=== PATIENT | male | born 1950 | race Caucasian/White ===

== ENCOUNTER 2023-09-19 13:46 | Outpatient (CLI) | payer MEDICARE, SELFPAY ==
[2023-09-19 14:25] LABS: Alveolar/Arterial O2 Gradient 29.6 mmHg; Base Excess ABG 3.3 mEq/l (+/-2.0); Fractional Inspired Oxygen 21 %; HCO3 ABG 28.8 mEq/l (22.0-26.0); Oxygen Content ABG 20.4 %vol (16.0-22.0); Oxygen Saturation ABG 92.6 % (95.0-100.0); PCO2 ABG 46.5 mmHg (35.0-45.0); PO2 ABG 64.4 mmHg (80.0-100.0); PO2 FiO2 Ratio Arterial Blood 3.07 %; Total Hemoglobin 16.6 g/dL (12.0-18.0)
[2023-09-19 14:31] LABS: Modified Allen's Test Pass; Oxyhemoglobin 87.7 % THb (90.0-100.0)
[2023-09-19 14:32] LABS: Device ROOM AIR
--- NOTE | 2023-09-22 09:37 | WPDPFTINT ---
PFT Procedure Performed PFT Procedure Performed Spirometry with Pre/Post Bronchodilator Plethysmography (Lung Vol) Diffusing Cap (DLCO) Flow Vol Loop PFT Interpretation This is a pulmonary function test with pre and post-bronchodilator spirometry, plethysmography and diffusing capacity. The test was performed and results interpreted in accordance with the 2019 and 2005 ATS/ERS Task Force guidelines respectively using the Global Lung Function Initiative-2012 reference equations. Patient demonstrated good effort and cooperation. Reproducibility criteria were met. The quality of the pre bronchodilator spirometry maneuver was Grade A and post bronchodilator spirometry maneuver was Grade A. Findings: Spirometry: There is decreased maximal expiratory airflow at all lung volumes with concave expiratory flow tracing. The contour the inspiratory flow tracing is normal. The pre bronchodilator FVC is 3.73 L, 92% predicted. The pre bronchodilator FEV1 is 1.17 L, 38% predicted. The pre bronchodilator FEV1: FVC ratio is 31%. The post bronchodilator FVC is 3.86 L, representing a 4% increase. The post bronchodilator FEV1 is 1.24 L, representing a 6% increase. The post bronchodilator FEV1: FVC ratio is 32%. Plethysmography: The total lung capacity is 7.06 L, 104% predicted. The functional residual capacity is 5.10 L, 141% predicted. The residual volume is 3.34 L, 139% predicted. The residual volume: Total lung capacity ratio is 47%. Diffusing capacity: The diffusing capacity unadjusted for hemoglobin and carboxyhemoglobin is 8.4, 33% predicted. The diffusing capacity adjusted for alveolar volume is 1.68, 43% predicted. Impression: There is a severe obstructive abnormality. There is no significant improvement after inhaling a single dose of albuterol. The increase in residual volume to total lung volume ratio is consistent with hyperinflation from an obstructive abnormality. The diffusing capacity unadjusted for hemoglobin and carboxyhemoglobin is severely decreased and remains moderately decreased when adjusted for alveolar volume. There are no prior studies for comparison
--- NOTE | 2023-09-24 12:54 | WPDSIXMINUTE ---
Six Minute Walk Procedure Procedure Performed Pulmonary Stress Test (6 min walk) Six Minute Walk Six Minute Walk: This 6 minute walk test was conducted with the patient breathing ambient air. The pre-walk baseline oxyhemoglobin saturation was 94%. The patient walked 365 m with no stops during testing. During the walk the oxyhemoglobin saturation remained in the range of 93%-95%. Impression: No evidence of oxyhemoglobin desaturation on this testing.
== END 2023-09-19 13:47 | disposition home or self-care (01) ==
LOC: ANHPFT 13:53
PROVIDERS: PCP Internal Medicine; Visit Provider Internal Medicine Critical Care Medicine
DX: J43.9 Emphysema, unspecified (principal)
CPT/HCPCS: 36600; 82805; 94060; 94618; 94726; 94729

== ENCOUNTER 2024-06-10 01:08 | Day surgery (SDC) | payer MEDICARE, SELFPAY ==
[2024-05-31 14:48] VITALS: BMI 18.6
--- NOTE | 2024-06-09 15:36 | P.PNAN_ITS ---
Anes - Initial Pre Proc Eval Procedure: Operation Date: 06/10/24 10:00 Proposed Procedures p Screening Colonoscopy - Sohail Saldana MD Date/Time: 06/09/24 15:36 Surgeon: Sohail Saldana MD Pre Op Diagnosis: personal hx colon polyps Patient Data Age: 73 Gender: M Height: 1.73 m Weight: 55.4 kg Allergies Allergy/AdvReac Type Severity Reaction Status Date / Time No Known Allergies Allergy Verified 06/10/24 08:52 Home Medications ?Medication ?Instructions ?Recorded ?Confirmed ?Type Trelegy Ellipta 100 mcg-62.5 See Rx Instructions .Route 05/20/24 06/10/24 Rx mcg-25 mcg powder for inhalation .COMPLEX #60 ea ([id number]) Patient hx anesthesia problems: none Family hx anesthesia problems: none Results Review: All pre-operative results and documents have been reviewed as part of the pre- operative evaluation. [facility] Past Medical History Medical History Abnormal weight loss Benign prostatic hyperplasia Hypercholesterolemia Polyp of colon Pulmonary emphysema 04/23/2022 Family History Family History Mother Hypertension Diabetes mellitus Father COPD (chronic obstructive pulmonary disease) Sibling Cerebrovascular accident Parkinson disease Social History Social History Smoking packs per day: 1 Smoking cigarettes per day: 20.0 Years smoked: 60 Smoking pack-years: 60.00 Smoking status: Current every day smoker Tobacco type: cigarettes Second hand tobacco smoke exposure: Yes Alcohol intake: current Substance use: unknown Anes - Eval Final PreProcedure Day of Procedure 06/09/24 15:36 Patient weight: normal Heart: regular rate and rhythm Lungs: clear to auscultation and normal air movement Airway: Mallampati scale class II Neurological: alert and oriented Last oral intake: >/= 8 hours ASA classification: III Emergent: no Anesthetic plan: proceed Anesthesia type and monitoring: general GIVS and standard monitoring Results Review: All pre-operative results and documents have been reviewed as part of the pre- operative evaluation. Informed Consent: The patient's anesthetic plan and its attendant risks and benefits were discussed with the patient/family/POA. Questions were solicited and answers provided to the satisfaction of the patient/family/POA.
[2024-06-10 08:53] VITALS: BP 154/89; PULSE 96; RESP 22; TEMP 36.4; O2SAT 94; BMI 18.6
[2024-06-10] MEDS: LACTATED RINGERS 1,000 ML 150 ML IV CONT (08:57)
--- NOTE | 2024-06-10 09:04 | PM.HPGS ---
History of Present Illness History of Present Illness Consent: Risks, benefits, and alternatives have been discussed and questions answered. Patient agrees to proceed with procedure. Chief complaint: personal hx colon polyps Narrative: Golden Barksdale is a 73 year old male with colon polyp, last colonoscopy 5 years ago Review of Systems Review of Systems: All systems reviewed & are unremarkable except as noted in HPI and below PMFSH Past Medical History Medical History (Updated 06/10/24 @ 09:07 by Sohail Saldana MD) Adenomatous colon polyp Benign prostatic hyperplasia Abnormal weight loss Pulmonary emphysema 04/23/2022 Hypercholesterolemia Polyp of colon Family History Family History Mother Hypertension Diabetes mellitus Father COPD (chronic obstructive pulmonary disease) Sibling Cerebrovascular accident Parkinson disease Social History Social History Smoking packs per day: 1 Smoking cigarettes per day: 20.0 Years smoked: 60 Smoking pack-years: 60.00 Smoking status: Current every day smoker Tobacco type: cigarettes Second hand tobacco smoke exposure: Yes Alcohol intake: current Substance use: unknown Meds Home Medications and Allergies Home Medications ?Medication ?Instructions ?Recorded ?Confirmed ?Type Trelegy Ellipta 100 mcg-62.5 See Rx Instructions .Route 05/20/24 06/10/24 Rx mcg-25 mcg powder for inhalation .COMPLEX #60 ea ([id number]) Allergies Allergy/AdvReac Type Severity Reaction Status Date / Time No Known Allergies Allergy Verified 06/10/24 08:52 Vital Signs Vital Signs - 24 hr 06/10/24 08:53 Temperature 97.6 F Pulse Rate 96 Respiratory Rate 22 H Blood Pressure 154/89 H Pulse Oximetry 94 Oxygen Delivery Room Air Exam Const: General: comfortable and no acute distress HENMT: Face/Nose/Sinus: Normal nares present Eyes: General: appearance normal, both eyes and all related structures Neck: Neck: no JVD Resp: Auscultation: clear to auscultation bilaterally Cardio: Rate: regular rate Rhythm: regular rhythm GI: Inspection: non-distended GI Palp: Yes Soft to palpation Skin: General skin exam: normal color Neuro: Speech: normal speech Extrem: General: normal to inspection Psych: Mental Status: mental status grossly normal Assessment and Plan Assessment and plan (1) Adenomatous colon polyp: Code(s): D12.6 - Benign neoplasm of colon, unspecified Status: Acute Assessment and Plan: colonoscopy
[2024-06-10 09:23] VITALS: BP 96/58; PULSE 81; RESP 25; O2SAT 94
[2024-06-10 09:33] VITALS: BP 108/77; PULSE 77; RESP 23; O2SAT 98
[2024-06-10 09:43] VITALS: BP 125/73; PULSE 70; RESP 24; O2SAT 98
--- OUTSIDE RECORDS SUMMARY | 2024-06-11 03:45 | XMS_ITS | Data Portability ---
Author Organization [facility], Main Office Address [address] [place] [address] Assessment No assessment recorded. Plan of Treatment Reminders Order Date Submit Date Provider Last Modified By Organization Details Last Modified Time Details Appointments None recorded . Lab CBC w/ auto diff 023 11/13/19 23 [employer] [facility], [place], [address], 3 15:14:33 CMP, serum or plasma 023 11/13/19 23 [employer] [facility], [place], [address], 3 15:14:32 T4, free, serum 023 11/13/[address] [facility], [place], [address], 3 15:14:34 TSH, serum or plasma 023 11/13/[address] [facility], [place], [address], 3 15:14:35 PSA, serum or plasma 023 11/13/19 23 [employer] [facility], [place], [address], 3 15:14:35 lipid panel, serum 024 01/01/20 24 [employer] [facility], [place], [address], 4 07:44:47 CMP, serum or plasma 024 01/01/20 24 [employer] [facility], [address], [place], [address], 4 07:44:47 CBC w/ auto diff 024 01/01/20 24 [employer] [facility], [address], [place], [address], 4 07:44:48 PSA, serum or plasma 024 01/01/20 24 [employer] [facility], [address], [place], [address], 4 07:44:48 Referral None recorded . Procedures None recorded . Surgeries None recorded . Imaging None recorded . Medication Orders None recorded . Patient TargetsNo targets recorded. Patient Instructions Encounter Date Encounter Id Patient Instructions Last Modified By Organization Details Last Modified Time 11/12/2022 [id number] Follow-up pulmon bonny emphysema -prostatic hypertrophy -colon polyps by history. Clinically doing well. Has noticed some decrease in exercise tolerance over the last year. Refuses try to take any type of bronchodilators or have other diagnostic test performed outside the low-dose CT scan he had done back in May. That did not demonstrate any evidence any high risk of malignancy. States he can walk up one flight of steps without becoming extremely dyspneic. Really needs to have further pulmonary function test performed possibly see pulmonology refusing at this time. Will check blood work consisting of CBC, CMP, lipid and PSA. Follow-up in six months [email or web address] Not available 11/12/2022 12:22:34 07/04/2023 [id number] dementia rating scale-2* [email or web address] Not available 07/04/2023 11:29:21 alcohol misuse* [email or web address] Not available 07/04/2023 11:29:21 depression screening* [email or web address] Not available 07/04/2023 11:29:21 multi-dimensiona l health assessment questionnaire* [email or web address] Not available 07/04/2023 11:29:21 Personalized a lth Plan and Screening Recommendations Advance Directives - Do you have one? Advance Directives - Do we have your advance directive on file in your health record? Primary Prevention/Interven tion (prevents or decreases the chance of common diseases from occurring) Smoking Risk: Refer to attached smoking cessation handouts Refer to attached handouts and prescription will be sent to pharmacy Continue to consider stopping smoking and call if we can assist you Alcohol Misuse Screening: Negative Weight: Physical activity: Nutrition: Good Average Fall Risk (screened today): Low Vaccines Pneumococcal: Influenza: Ordered Recommended today Recommended today, but you have declined Chronic Disease Risks Stroke: Low Risk I have no recommendations Heart Attack: Low risk I have no recommendations Clogging of the Arteries: Low risk Intermediate Risk I have no recommendations Act juan pablo diagnosis, Continue current treatment plan Diabetes: Low Risk I have no recommendations Secondary Prevention/Interven tion (detects treatable diseases before they may cause symptoms, disability, or ) Prostate Cancer Screening: Colon Cancer Screening: Colonoscopy Date Screening Last Performed: _2018 Eye Disease Screening: Dementia Risk: Low I have no recommendations Depression Screening: Negative [email or web address] Not available 07/04/2023 11:02:25 [facility] stable. Follow-up for hyperlipidemia -pulmonary emphysema as well as colon polyps. No blood work needed at this time. Will continue on current Rx. Will set up for a pulmonary evaluation. The low-dose CT scan of the chest done today which we have the results already. Does show some changes and small nodules in the lung. They recommended six month follow-up. Did have a trial of some Breztri with no improvement. Will continue on current Rx otherwise. Portions of the record may have been created with voice recognition software. Occasional wrong-word or ? [id number]? substitutions may have occurred due to the inherent limitations of voice recognition software. Read the chart carefully and recognize, using context, where substitutions have occurred. Set up for pulmonary evaluation because of severe emphysema. Keep Appt: Fri 10:30 AM Michelle [email or web address] Not available 07/04/2023 11:29:04 01/01/2024 [id number] Personalized Hea lth Plan and Screening Recommendations Advance Directives - Do you have one? Advance Directives - Do we have your advance directive on file in your health record? Primary Prevention/Interven tion (prevents or decreases the chance of common diseases from occurring) Smoking Risk: Alcohol Misuse Screening: Weight: Physical activity: Nutrition: Fall Risk (screened today): Vaccines Pneumococcal: Influenza: Chronic Disease Risks Stroke: I have no recommendations Active diagnosis, Continue current treatment plan Heart Attack: I have no recommendations Act juan pablo diagnosis, Continue current treatment plan Clogging of the Arteries: I have no recommendations Act juan pablo diagnosis, Continue current treatment plan Diabetes: Secondary Prevention/Interven tion (detects treatable diseases before they may cause symptoms, disability, or ) Prostate Cancer Screening: Colon Cancer Screening: Date Screening Last Performed: Eye Disease Screening: Dementia Risk: Depression Screening: [email or web address] Not available 01/01/2024 11:20:52 Follow-up for CO PD, hyperlipidemia, benign prostatic hypertrophy and multiple pulmonary nodules. Check blood work consisting of CBC, CMP, lipid PSA. I will also do a low-dose CT scan the chest for follow-up as well as set up for a colonoscopy. Additional Orders - Directives - Recommendations 1. Six-month follow-up low-dose CT scan of the chest for pulmonary nodules at radiology request 2. Colonoscopy follow-up for polyps Next Appointment: 6 Months Approximate Date: 06/29/2024 Portions of the record may have been created with voice recognition software. Occasional wrong-word or ? [id number]? substitutions may have occurred due to the inherent limitations of voice recognition software. Read the chart carefully and recognize, using context, where substitutions have occurred. [email or web address] Not available 01/01/2024 12:06:42 Reason for Referral None Reported. Results Created Date Observation Date Name Description Value Unit Range Abnormal Flag Note LastModifiedBy Organization Detail LastModifiedTime 11/16/19 22 11/16/2021 PSA, TOTAL PSA, total 0.46 NG/mL < or = 4.00 normal The total PSA value from this assay syste m is stand ardiz ed again st the WHO stand lisset. The test resul t will be appro ximat jared 20% lower when jacklyn red to the equim olar- stand ardiz ed total PSA ([place] [facility]). Jacklyn rison of seria l PSA resul ts shoul d be inter prete d with this fact in mind. This test was perfo rmed using the Sieme ns chemi lumin escen t metho d. Value s obtai vadim from diffe rent assay metho ds canno t be used inter sampson eably . PSA level s, regar dless of value , shoul d not be inter prete d as absol shawnee evide nce of the prese nce or absen ce of disea se. Not Available [address], [address], 11/16/2021 04:04:36 11/16/19 22 11/16/2021 VITAM IN B12 vitamin B12 497 pg/mL 200-11 00 normal Not Available [address], [address], 11/16/2021 04:04:35 11/16/19 22 11/16/2021 CBC (INCL UDES DIFF/ PLT) white blood cell count 6.0 thous and/u L 3.8-10 .8 normal Not Available [address], [address], 11/16/2021 04:04:35 11/16/19 22 11/16/2021 CBC (INCL UDES DIFF/ PLT) red blood cell count 4.94 trisha on/uL 4.20-5 .80 normal Not Available [address], [address], 11/16/2021 04:04:35 11/16/19 22 11/16/2021 CBC (INCL UDES DIFF/ PLT) hemoglobin 17.0 g/dL 13.2-1 7.1 normal Not Available [address], [address], 11/16/2021 04:04:35 11/16/19 22 11/16/2021 CBC (INCL UDES DIFF/ PLT) hematocrit 49.2 % 38.5-5 0.0 normal Not Available [facility] [address], [address], 11/16/2021 04:04:35 11/16/19 22 11/16/2021 CBC (INCL UDES DIFF/ PLT) MCV 99.6 fL 80.0-1 00.0 normal Not Available [address], [address], 11/16/2021 04:04:35 11/16/19 22 11/16/2021 CBC (INCL UDES DIFF/ PLT) MCH 34.4 pg 27.0-3 3.0 high Not Available [facility] [address], [address], 11/16/2021 04:04:35 11/16/19 22 11/16/2021 CBC (INCL UDES DIFF/ PLT) MCHC 34.6 g/dL 32.0-3 6.0 normal Not Available [address], [address], 11/16/2021 04:04:35 11/16/19 22 11/16/2021 CBC (INCL UDES DIFF/ PLT) RDW 12.5 % 11.0-1 5.0 normal Not Available [address], [address], 11/16/2021 04:04:35 11/16/19 22 11/16/2021 CBC (INCL UDES DIFF/ PLT) platelet count 234 thous and/u L 140-40 0 normal Not Available [address], [address], 11/16/2021 04:04:35 11/16/19 22 11/16/2021 CBC (INCL UDES DIFF/ PLT) MPV 10.5 fL 7.5-12 .5 normal Not Available [address], [address], 11/16/2021 04:04:35 11/16/19 22 11/16/2021 CBC (INCL UDES DIFF/ PLT) absolute neutrophils 3606 cells /uL 1500-7 800 normal Not Available [address], [address], 11/16/2021 04:04:35 11/16/19 22 11/16/2021 CBC (INCL UDES DIFF/ PLT) absolute lymphocytes 1602 cells /uL 850-39 00 normal Not Available [address], [address], 11/16/2021 04:04:35 11/16/19 22 11/16/2021 CBC (INCL UDES DIFF/ PLT) absolute monocytes 672 cells /uL 200-95 0 normal Not Available [address], [address], 11/16/2021 04:04:35 11/16/19 22 11/16/2021 CBC (INCL UDES DIFF/ PLT) eosinophils 1.3 % normal Not Available [address], [address], 11/16/2021 04:04:35 11/16/19 22 11/16/2021 CBC (INCL UDES DIFF/ PLT) absolute eosinophils 78 cells /uL 15-500 normal Not Available [address], [address], 11/16/2021 04:04:35 11/16/19 22 11/16/2021 CBC (INCL UDES DIFF/ PLT) absolute basophils 42 cells /uL 0-200 normal Not Available [facility] [address], [address], 11/16/2021 04:04:35 11/16/19 22 11/16/2021 CBC (INCL UDES DIFF/ PLT) neutrophils 60.1 % normal Not Available [address], [address], 11/16/2021 04:04:35 11/16/19 22 11/16/2021 CBC (INCL UDES DIFF/ PLT) lymphocytes 26.7 % normal Not Available [address], [address], 11/16/2021 04:04:35 11/16/19 22 11/16/2021 CBC (INCL UDES DIFF/ PLT) monocytes 11.2 % normal Not Available [facility] [address], [address], 11/16/2021 04:04:35 11/16/19 22 11/16/2021 CBC (INCL UDES DIFF/ PLT) basophils 0.7 % normal Not Available [address], [address], 11/16/2021 04:04:35 11/16/19 22 11/16/2021 SED RATE BY MODIF IED WESTE RGREN sed rate by modified westkeyonnaren 2 mm/h < or = 20 normal Not Available [address], [address], 11/16/2021 04:04:34 11/16/19 22 11/16/2021 COMPR EHENS JUAN PABLO METAB OLIC PANEL , PLASM A glucose 89 mg/dL 65-99 normal Fasti ng refer ence inter quintin Not Available [address], [address], 11/16/2021 04:04:34 11/16/19 22 11/16/2021 COMPR EHENS JUAN PABLO METAB OLIC PANEL , PLASM A urea nitrogen (BUN) 6 mg/dL 7-25 low Not Available [address], [address], 11/16/2021 04:04:34 11/16/19 22 11/16/2021 COMPR EHENS JUAN PABLO METAB OLIC PANEL , PLASM A creatinine 0.71 mg/dL 0.70-1 .25 normal For patie nts >49 years of age, the refer ence limit for Creat inine is appro ximat jared 13% highe r for peopl e ident ified as Afric an-Am nancy n. Not Available [address], [address], 11/16/2021 04:04:34 11/16/19 22 11/16/2021 COMPR EHENS JUAN PABLO METAB OLIC PANEL , PLASM A eGFR non-afr. somali 96 mL/mi n/1.7 3m2 > or = 60 normal Not Available [facility] [address], [address], 11/16/2021 04:04:34 11/16/19 22 11/16/2021 COMPR EHENS JUAN PABLO METAB OLIC PANEL , PLASM A eGFR 111 mL/mi n/1.7 3m2 > or = 60 normal Not Available [address], [address], 11/16/2021 04:04:34 11/16/19 22 11/16/2021 COMPR EHENS JUAN PABLO METAB OLIC PANEL , PLASM A BUN/creatini ne ratio 8 (calc ) 6-22 normal Not Available [address], [address], 11/16/2021 04:04:34 11/16/19 22 11/16/2021 COMPR EHENS JUAN PABLO METAB OLIC PANEL , PLASM A sodium 139 mmol/ L 135-14 6 normal Not Available [address], [address], 11/16/2021 04:04:34 11/16/19 22 11/16/2021 COMPR EHENS JUAN PABLO METAB OLIC PANEL , PLASM A potassium 4.6 mmol/ L 3.4-4. 8 normal Not Available [facility] [address], [address], 11/16/2021 04:04:34 11/16/19 22 11/16/2021 COMPR EHENS JUAN PABLO METAB OLIC PANEL , PLASM A chloride 98 mmol/ L 98-110 normal Not Available [address], [address], 11/16/2021 04:04:34 11/16/19 22 11/16/2021 COMPR EHENS JUAN PABLO METAB OLIC PANEL , PLASM A carbon dioxide 30 mmol/ L 20-32 normal Not Available [address], [address], 11/16/2021 04:04:34 11/16/19 22 11/16/2021 COMPR EHENS JUAN PABLO METAB OLIC PANEL , PLASM A calcium 9.6 mg/dL 8.6-10 .3 normal Not Available [address], [address], 11/16/2021 04:04:34 11/16/19 22 11/16/2021 COMPR EHENS JUAN PABLO METAB OLIC PANEL , PLASM A protein, total 7.0 g/dL 6.4-8. 4 normal Not Available [address], [address], 11/16/2021 04:04:34 11/16/19 22 11/16/2021 COMPR EHENS JUAN PABLO METAB OLIC PANEL , PLASM A albumin 4.4 g/dL 3.6-5. 1 normal Not Available [address], [address], 11/16/2021 04:04:34 11/16/19 22 11/16/2021 COMPR EHENS JUAN PABLO METAB OLIC PANEL , PLASM A globulin 2.6 g/dL_ (calc ) 2.2-4. 0 normal Not Available [address], [address], 11/16/2021 04:04:34 11/16/19 22 11/16/2021 COMPR EHENS JUAN PABLO METAB OLIC PANEL , PLASM A albumin/glob ulin ratio 1.7 (calc ) 0.9-2. 3 normal Not Available [address], [address], 11/16/2021 04:04:34 11/16/19 22 11/16/2021 COMPR EHENS JUAN PABLO METAB OLIC PANEL , PLASM A bilirubin, total 0.5 mg/dL 0.2-1. 2 normal Not Available [address], [address], 11/16/2021 04:04:34 11/16/19 22 11/16/2021 COMPR EHENS JUAN PABLO METAB OLIC PANEL , PLASM A alkaline phosphatase 97 U/L 35-144 normal Not Available [address], [address], 11/16/2021 04:04:34 11/16/19 22 11/16/2021 COMPR EHENS JUAN PABLO METAB OLIC PANEL , PLASM A AST 78 U/L 10-35 high Not Available [address], [address], 11/16/2021 04:04:34 11/16/19 22 11/16/2021 COMPR EHENS JUAN PABLO METAB OLIC PANEL , PLASM A ALT 76 U/L 9-46 high Not Available [address], [address], 11/16/2021 04:04:34 11/16/19 22 11/16/2021 TSH+F REE T4 TSH 1.60 mIU/L 0.40-4 .50 normal Not Available [address], [address], 11/16/2021 04:04:33 11/16/19 22 11/16/2021 TSH+F REE T4 T4, free 1.1 NG/dL 0.8-1. 8 normal Not Available [address], [address], 11/16/2021 04:04:33 11/16/19 22 11/16/2021 LIPID PANEL , STAND LISSET LDL-choleste rol 59 mg/dL _(ashley c) normal Refer ence range : <100 Katrina able range <100 mg/dL for prima ry preve ntion ; <70 mg/dL for patie nts with CHD or diabe tic patie nts with > or = 2 CHD risk facto rs. LDL-C is now calcu lated using the Audra n-Hop kins calcu latio n, which is a valid ated novel metho d provi ding luis antonio r accur acy than the Fried yordy equat ion in the estim ation of LDL-C . Audra reynolds SS et al. JUN. 2013; 310(1 9): 2061- 2068 (http ://ed ucati on.ebooxter.com. com/f aq/FA Q164) Not Available [address], [address], 11/16/2021 04:04:32 11/16/19 22 11/16/2021 LIPID PANEL , STAND LISSET cholesterol, total 165 mg/dL <200 normal Not Available [address], [address], 11/16/2021 04:04:32 11/16/19 22 11/16/2021 LIPID PANEL , STAND LISSET HDL cholesterol 88 mg/dL > or = 40 normal Not Available [address], [address], 11/16/2021 04:04:32 11/16/19 22 11/16/2021 LIPID PANEL , STAND LISSET triglyceride s 93 mg/dL <150 normal Not Available [address], [address], 11/16/2021 04:04:32 11/16/19 22 11/16/2021 LIPID PANEL , STAND LISSET chol/HDLC ratio 1.9 (calc ) <5.0 normal Not Available [facility] [address] [address], [place], [address], 11/16/2021 04:04:32 11/16/19 22 11/16/2021 LIPID PANEL , STAND LISSET non HDL cholesterol 77 mg/dL _(ashley c) <130 normal For patie nts with diabe marguerite plus 1 major ASCVD risk facto r, treat ing to a non-H DL-C goal of <100 mg/dL (LDL- C of <70 mg/dL ) is consi dered a thera peuti c optio n. Not Available [facility] [address] [address] [address], [place], [address], 11/16/2021 04:04:32 11/29/19 22 11/29/2021 HEPAT ITIS PANEL , ACUTE W/REF OLGA TO CONFI RMATI ON index 0.01 <1.00 normal HCV antib marcin was non-r eacti ve. There is no labor atory evide nce of HCV infec tion. In most cases , no furth er actio n is requi red. Howev er, if recen t HCV expos ure is suspe cted, a test for HCV RNA (test code 19325 ) is sugge sted. For addit ional infor matio n pleas e refer to http: //Bright!Tax charlotte n.que stdia gnost ics.c om/fa q/FAQ 22v1 (This link is being provi ded for infor chaim nal/ educa franny l purpo ses only. ) Not Available [facility] [address], [place], [address], 11/29/2021 10:53:24 11/29/19 22 11/29/2021 HEPAT ITIS PANEL , ACUTE W/REF OLGA TO CONFI RMATI ON hepatitis A IgM non-re active non-re active normal For addit ional infor matio n, pleas e refer to http: //Bright!Tax catkimmy n.que stdia gnost ics.c om/fa q/FAQ 202 (This link is being provi ded for infor matio nal/ rahul jacksono ses only. ) Not Available [address] [address] [place], [address], 11/29/2021 10:53:24 11/29/19 22 11/29/2021 HEPAT ITIS PANEL , ACUTE W/REF OLGA TO CONFI RMATI ON hepatitis B surface antigen non-re active non-re active normal Not Available [address] [address] [place], [address], 11/29/2021 10:53:24 11/29/19 22 11/29/2021 HEPAT ITIS PANEL , ACUTE W/REF OLGA TO CONFI RMATI ON hepatitis B core antibody (IgM) non-re active non-re active normal Not Available [address] [address] [place], [address], 11/29/2021 10:53:24 11/29/19 22 11/29/2021 HEPAT ITIS PANEL , ACUTE W/REF OLGA TO CONFI RMATI ON hepatitis C antibody non-re active non-re active normal Not Available [address] [address] [place], [address], 11/29/2021 10:53:24 11/16/19 23 11/16/2022 LIPID PANEL , STAND LISSET cholesterol, total 135 mg/dL <200 normal Not Available [address] [address] [place], [address], 11/16/2022 15:14:31 11/16/19 23 11/16/2022 LIPID PANEL , STAND LISSET HDL cholesterol 65 mg/dL > or = 40 normal Not Available [address], [address], 11/16/2022 15:14:31 11/16/19 23 11/16/2022 LIPID PANEL , STAND LISSET triglyceride s 65 mg/dL <150 normal Not Available [address] [place], [address], 11/16/2022 15:14:31 11/16/19 23 11/16/2022 LIPID PANEL , STAND LISSET LDL-choleste rol 56 mg/dL _(ashley c) normal Refer ence range : <100 Katrina able range <100 mg/dL for prima ry preve ntion ; <70 mg/dL for patie nts with CHD or diabe tic patie nts with > or = 2 CHD risk facto rs. LDL-C is now calcu lated using the Audra n-Hop kins calcu latio n, which is a valid ated novel metho d provi ding luis antonio r accur acy than the Fried yordy equat ion in the estim ation of LDL-C . Audra reynolds SS et al. JUN. 2013; 310(1 9): 2061- 2068 (http ://ed ucati on.ebooxter.com. I Like My Waitress/f aq/FA Q164) Not Available [facility] [address] [place], [address], 11/16/2022 15:14:31 11/16/19 23 11/16/2022 LIPID PANEL , STAND LISSET chol/HDLC ratio 2.1 (calc ) <5.0 normal Not Available [facility] [address] [place], [address], 11/16/2022 15:14:31 11/16/19 23 11/16/2022 LIPID PANEL , STAND LISSET non HDL cholesterol 70 mg/dL _(ashley c) <130 normal For patie nts with diabe marguerite plus 1 major ASCVD risk facto r, treat ing to a non-H DL-C goal of <100 mg/dL (LDL- C of <70 mg/dL ) is maurisio cohen c optio n. Not Available [facility] [address] [place], [address], 11/16/2022 15:14:31 11/16/19 23 11/16/2022 COMPR EHENS JUAN PABLO METAB OLIC PANEL glucose 99 mg/dL 65-99 normal Fasti ng refer ence inter quintin Not Available [facility] [address] [address] [place], [address], 11/16/2022 15:14:32 11/16/19 23 11/16/2022 COMPR EHENS JUAN PABLO METAB OLIC PANEL urea nitrogen (BUN) 7 mg/dL 7-25 normal Not Available [facility] [address] [address] [place], [address], 11/16/2022 15:14:32 11/16/19 23 11/16/2022 COMPR EHENS JUAN PABLO METAB OLIC PANEL creatinine 0.66 mg/dL 0.70-1 .28 low Not Available [address] [address] [place], [address], 11/16/2022 15:14:32 11/16/19 23 11/16/2022 COMPR EHENS JUAN PABLO METAB OLIC PANEL eGFR 101 mL/mi n/1.7 3m2 > or = 60 normal The eGFR is based on the CKD-E PI 2020 equat ion. To calcu late the new eGFR from a previ ous Creat inine or Cysta tin C resul t, go to https ://xavier hurd/adair chester/ kdoqi /gfr% 5Fcal culat or Not Available [address] [address] [place], [address], 11/16/2022 15:14:32 11/16/19 23 11/16/2022 COMPR EHENS JUAN PABLO METAB OLIC PANEL BUN/creatini ne ratio 11 (calc ) 6-22 normal Not Available [facility] [address] [address] [place], [address], 11/16/2022 15:14:32 11/16/19 23 11/16/2022 COMPR EHENS JUAN PABLO METAB OLIC PANEL sodium 136 mmol/ L 135-14 6 normal Not Available [address] [address] [place], [address], 11/16/2022 15:14:32 11/16/19 23 11/16/2022 COMPR EHENS JUAN PABLO METAB OLIC PANEL potassium 5.2 mmol/ L 3.5-5. 3 normal Not Available [address], [address], 11/16/2022 15:14:32 11/16/19 23 11/16/2022 COMPR EHENS JUAN PABLO METAB OLIC PANEL chloride 95 mmol/ L 98-110 low Not Available [address], [address], 11/16/2022 15:14:32 11/16/19 23 11/16/2022 COMPR EHENS JUAN PABLO METAB OLIC PANEL carbon dioxide 33 mmol/ L 20-32 high Not Available [address], [address], 11/16/2022 15:14:32 11/16/19 23 11/16/2022 COMPR EHENS JUAN PABLO METAB OLIC PANEL calcium 9.5 mg/dL 8.6-10 .3 normal Not Available [address], [address], 11/16/2022 15:14:32 11/16/19 23 11/16/2022 COMPR EHENS JUAN PABLO METAB OLIC PANEL protein, total 6.5 g/dL 6.1-8. 1 normal Not Available [address], [address], 11/16/2022 15:14:32 11/16/19 23 11/16/2022 COMPR EHENS JUAN PABLO METAB OLIC PANEL albumin 4.0 g/dL 3.6-5. 1 normal Not Available [address], [address], 11/16/2022 15:14:32 11/16/19 23 11/16/2022 COMPR EHENS JUAN PABLO METAB OLIC PANEL globulin 2.5 g/dL_ (calc ) 1.9-3. 7 normal Not Available [address], [address], 11/16/2022 15:14:32 11/16/19 23 11/16/2022 COMPR EHENS JUAN PABLO METAB OLIC PANEL albumin/glob ulin ratio 1.6 (calc ) 1.0-2. 5 normal Not Available [address], [address], 11/16/2022 15:14:32 11/16/19 23 11/16/2022 COMPR EHENS JUAN PABLO METAB OLIC PANEL bilirubin, total 0.7 mg/dL 0.2-1. 2 normal Not Available [address], [address], 11/16/2022 15:14:32 11/16/19 23 11/16/2022 COMPR EHENS JUAN PABLO METAB OLIC PANEL alkaline phosphatase 95 U/L 35-144 normal Not Available [address], [address], 11/16/2022 15:14:32 11/16/19 23 11/16/2022 COMPR EHENS JUAN PABLO METAB OLIC PANEL AST 70 U/L 10-35 high Not Available [address], [address], 11/16/2022 15:14:32 11/16/19 23 11/16/2022 COMPR EHENS JUAN PABLO METAB OLIC PANEL ALT 66 U/L 9-46 high Not Available [address], [address], 11/16/2022 15:14:32 11/16/19 23 11/16/2022 CBC (INCL UDES DIFF/ PLT) white blood cell count 6.3 thous and/u L 3.8-10 .8 normal Not Available [address], [address], 11/16/2022 15:14:33 11/16/19 23 11/16/2022 CBC (INCL UDES DIFF/ PLT) red blood cell count 4.66 trisha on/uL 4.20-5 .80 normal Not Available [address], [address], 11/16/2022 15:14:33 11/16/19 23 11/16/2022 CBC (INCL UDES DIFF/ PLT) hemoglobin 15.6 g/dL 13.2-1 7.1 normal Not Available [address], [address], 11/16/2022 15:14:33 11/16/19 23 11/16/2022 CBC (INCL UDES DIFF/ PLT) hematocrit 46.7 % 38.5-5 0.0 normal Not Available [address] [address], [address], 11/16/2022 15:14:33 11/16/19 23 11/16/2022 CBC (INCL UDES DIFF/ PLT) MCV 100.2 fL 80.0-1 00.0 high Not Available [address], [address], 11/16/2022 15:14:33 11/16/19 23 11/16/2022 CBC (INCL UDES DIFF/ PLT) MCH 33.5 pg 27.0-3 3.0 high Not Available [address], [address], 11/16/2022 15:14:33 11/16/19 23 11/16/2022 CBC (INCL UDES DIFF/ PLT) MCHC 33.4 g/dL 32.0-3 6.0 normal Not Available [address], [address], 11/16/2022 15:14:33 11/16/19 23 11/16/2022 CBC (INCL UDES DIFF/ PLT) RDW 12.5 % 11.0-1 5.0 normal Not Available [address], [address], 11/16/2022 15:14:33 11/16/19 23 11/16/2022 CBC (INCL UDES DIFF/ PLT) platelet count 259 thous and/u L 140-40 0 normal Not Available [address], [address], 11/16/2022 15:14:33 11/16/19 23 11/16/2022 CBC (INCL UDES DIFF/ PLT) MPV 9.7 fL 7.5-12 .5 normal Not Available [address], [address], 11/16/2022 15:14:33 11/16/19 23 11/16/2022 CBC (INCL UDES DIFF/ PLT) absolute neutrophils 4498 cells /uL 1500-7 800 normal Not Available [address], [address], 11/16/2022 15:14:33 11/16/19 23 11/16/2022 CBC (INCL UDES DIFF/ PLT) absolute lymphocytes 1172 cells /uL 850-39 00 normal Not Available [address], [address], 11/16/2022 15:14:33 11/16/19 23 11/16/2022 CBC (INCL UDES DIFF/ PLT) absolute monocytes 561 cells /uL 200-95 0 normal Not Available [address], [address], 11/16/2022 15:14:33 11/16/19 23 11/16/2022 CBC (INCL UDES DIFF/ PLT) absolute eosinophils 32 cells /uL 15-500 normal Not Available [address], [address], 11/16/2022 15:14:33 11/16/19 23 11/16/2022 CBC (INCL UDES DIFF/ PLT) absolute basophils 38 cells /uL 0-200 normal Not Available [address], [address], 11/16/2022 15:14:33 11/16/19 23 11/16/2022 CBC (INCL UDES DIFF/ PLT) neutrophils 71.4 % normal Not Available [facility] [address], [address], 11/16/2022 15:14:33 11/16/19 23 11/16/2022 CBC (INCL UDES DIFF/ PLT) lymphocytes 18.6 % normal Not Available [facility] [address], [address], 11/16/2022 15:14:33 11/16/19 23 11/16/2022 CBC (INCL UDES DIFF/ PLT) monocytes 8.9 % normal Not Available [facility] [address], [address], 11/16/2022 15:14:33 11/16/19 23 11/16/2022 CBC (INCL UDES DIFF/ PLT) eosinophils 0.5 % normal Not Available [facility] [address], [address], 11/16/2022 15:14:33 11/16/19 23 11/16/2022 CBC (INCL UDES DIFF/ PLT) basophils 0.6 % normal Not Available [facility] [address], [address], 11/16/2022 15:14:33 11/16/19 23 11/16/2022 T4, FREE T4, free 1.1 NG/dL 0.8-1. 8 normal Not Available [address], [address], 11/16/2022 15:14:34 11/16/19 23 11/16/2022 TSH TSH 1.01 mIU/L 0.40-4 .50 normal Not Available [address], [address], 11/16/2022 15:14:34 11/16/19 23 11/16/2022 PSA, TOTAL PSA, total 0.48 NG/mL < or = 4.00 normal The total PSA value from this assay syste m is stand ardiz ed again st the WHO stand lisset. The test resul t will be appro ximat jared 20% lower when jacklyn red to the equim olar- stand ardiz ed total PSA ([place] man Coult er). Jacklyn rison of seria l PSA resul ts shoul d be inter prete d with this fact in mind. This test was perfo rmed using the SeeWhy ns chemi lumin escen t metho d. Value s obtai vadim from diffe rent assay metho ds canno t be used inter sampson eably . PSA level s, regar dless of value , shoul d not be inter prete d as absol shawnee evide nce of the prese nce or absen ce of disea se. Not Available [address] [place], [address], 11/16/2022 15:14:35 12/27/1912/27/2022 COMPR EHENS JUAN PABLO METAB OLIC PANEL glucose 99 mg/dL 65-99 normal Fasti ng refer ence inter quintin Not Available [facility] [address] [address] [place], [address], 12/27/2022 03:09:14 12/27/19 23 12/27/2022 COMPR EHENS JUAN PABLO METAB OLIC PANEL urea nitrogen (BUN) 9 mg/dL 7-25 normal Not Available [facility] [address] [place], [address], 12/27/2022 03:09:14 12/27/19 23 12/27/2022 COMPR EHENS JUAN PABLO METAB OLIC PANEL creatinine 0.68 mg/dL 0.70-1 .28 low Not Available [address], [address], 12/27/2022 03:09:14 12/27/1912/27/2022 COMPR EHENS JUAN PABLO METAB OLIC PANEL eGFR 100 mL/mi n/1.7 3m2 > or = 60 normal Not Available [address], [address], 12/27/2022 03:09:14 12/27/1912/27/2022 COMPR EHENS JUAN PABLO METAB OLIC PANEL BUN/creatini ne ratio 13 (calc ) 6-22 normal Not Available [address], [address], 12/27/2022 03:09:14 12/27/1912/27/2022 COMPR EHENS JUAN PABLO METAB OLIC PANEL sodium 136 mmol/ L 135-14 6 normal Not Available [address], [address], 12/27/2022 03:09:14 12/27/19 23 12/27/2022 COMPR EHENS JUAN PABLO METAB OLIC PANEL potassium 4.6 mmol/ L 3.5-5. 3 normal Not Available [address], [address], 12/27/2022 03:09:14 12/27/1912/27/2022 COMPR EHENS JUAN PABLO METAB OLIC PANEL chloride 96 mmol/ L 98-110 low Not Available [address], [address], 12/27/2022 03:09:14 12/27/1912/27/2022 COMPR EHENS JUAN PABLO METAB OLIC PANEL carbon dioxide 34 mmol/ L 20-32 high Not Available [address], [address], 12/27/2022 03:09:14 12/27/19 23 12/27/2022 COMPR EHENS JUAN PABLO METAB OLIC PANEL calcium 9.5 mg/dL 8.6-10 .3 normal Not Available [address], [address], 12/27/2022 03:09:14 12/27/1912/27/2022 COMPR EHENS JUAN PABLO METAB OLIC PANEL protein, total 6.6 g/dL 6.1-8. 1 normal Not Available [address], [address], 12/27/2022 03:09:14 12/27/1912/27/2022 COMPR EHENS JUAN PABLO METAB OLIC PANEL albumin 4.2 g/dL 3.6-5. 1 normal Not Available [address], [address], 12/27/2022 03:09:14 12/27/19 23 12/27/2022 COMPR EHENS JUAN PABLO METAB OLIC PANEL globulin 2.4 g/dL_ (calc ) 1.9-3. 7 normal Not Available [address], [address], 12/27/2022 03:09:14 12/27/1912/27/2022 COMPR EHENS JUAN PABLO METAB OLIC PANEL albumin/glob ulin ratio 1.8 (calc ) 1.0-2. 5 normal Not Available [address], [address], 12/27/2022 03:09:14 12/27/1912/27/2022 COMPR EHENS JUAN PABLO METAB OLIC PANEL bilirubin, total 0.9 mg/dL 0.2-1. 2 normal Not Available [address], [address], 12/27/2022 03:09:14 12/27/19 23 12/27/2022 COMPR EHENS JUAN PABLO METAB OLIC PANEL alkaline phosphatase 89 U/L 35-144 normal Not Available [facility] [address], [address], 12/27/2022 03:09:14 12/27/19 23 12/27/2022 COMPR EHENS JUAN PABLO METAB OLIC PANEL AST 57 U/L 10-35 high Not Available [address], [address], 12/27/2022 03:09:14 12/27/19 23 12/27/2022 COMPR EHENS JUAN PABLO METAB OLIC PANEL ALT 54 U/L 9-46 high Not Available [address], [address], 12/27/2022 03:09:14 01/06/20 24 01/07/2024 LIPID PANEL , STAND LISSET cholesterol, total 149 mg/dL <200 normal Not Available [address], [address], 01/07/2024 07:44:47 01/06/20 24 01/07/2024 LIPID PANEL , STAND LISSET HDL cholesterol 85 mg/dL > or = 40 normal Not Available [address], [address], 01/07/2024 07:44:47 01/06/20 24 01/07/2024 LIPID PANEL , STAND LISSET triglyceride s 61 mg/dL <150 normal Not Available [address], [address], 01/07/2024 07:44:47 01/06/20 24 01/07/2024 LIPID PANEL , STAND LISSET LDL-choleste rol 50 mg/dL _(ashley c) normal Refer ence range : <100 Katrina able range <100 mg/dL for prima ry preve ntion ; <70 mg/dL for patie nts with CHD or diabe tic patie nts with > or = 2 CHD risk facto rs. LDL-C is now calcu lated using the Audra n[facility] kins miguelina reynolds, which is a valid ated novel tc schofield than the Fried yordy gomezat ion in the estim ation of LDL-C . Audra reynolds SS et al. JUN. 2013; 310(1 9): 2061- 2068 (http ://ed ucati on.Qu estSevenpops. com/f aq/FA Q164) Not Available [address] [address] [place], [address], 01/07/2024 07:44:47 01/06/20 24 01/07/2024 LIPID PANEL , STAND LISSET chol/HDLC ratio 1.8 (calc ) <5.0 normal Not Available [address], [address], 01/07/2024 07:44:47 01/06/20 24 01/07/2024 LIPID PANEL , STAND LISSET non HDL cholesterol 64 mg/dL _(ashley c) <130 normal For patie nts with diabe marguerite plus 1 major ASCVD risk facto r, treat ing to a non-H DL-C goal of <100 mg/dL (LDL- C of <70 mg/dL ) is consi kindra mortono n. Not Available [address] [address] [place], [address], 01/07/2024 07:44:47 01/06/20 24 01/07/2024 COMPR EHENS JUAN PABLO METAB OLIC PANEL glucose 87 mg/dL 65-99 normal Fasti ng refer ence inter quintin Not Available [address] [address] [place], [address], 01/07/2024 07:44:47 01/06/20 24 01/07/2024 COMPR EHENS JUAN PABLO METAB OLIC PANEL urea nitrogen (BUN) 12 mg/dL 7-25 normal Not Available [address], [address], 01/07/2024 07:44:47 01/06/20 24 01/07/2024 COMPR EHENS JUAN PABLO METAB OLIC PANEL creatinine 0.57 mg/dL 0.70-1 .28 low Not Available [address], [address], 01/07/2024 07:44:47 01/06/20 24 01/07/2024 COMPR EHENS JUAN PABLO METAB OLIC PANEL eGFR 105 mL/mi n/1.7 3m2 > or = 60 normal Not Available [address], [address], 01/07/2024 07:44:47 01/06/20 24 01/07/2024 COMPR EHENS JUAN PABLO METAB OLIC PANEL BUN/creatini ne ratio 21 (calc ) 6-22 normal Not Available [address], [address], 01/07/2024 07:44:47 01/06/20 24 01/07/2024 COMPR EHENS JUAN PABLO METAB OLIC PANEL sodium 139 mmol/ L 135-14 6 normal Not Available [address], [address], 01/07/2024 07:44:47 01/06/20 24 01/07/2024 COMPR EHENS JUAN PABLO METAB OLIC PANEL potassium 4.8 mmol/ L 3.5-5. 3 normal Not Available [address], [address], 01/07/2024 07:44:47 01/06/20 24 01/07/2024 COMPR EHENS JUAN PABLO METAB OLIC PANEL chloride 99 mmol/ L 98-110 normal Not Available [address], [address], 01/07/2024 07:44:47 01/06/20 24 01/07/2024 COMPR EHENS JUAN PABLO METAB OLIC PANEL carbon dioxide 32 mmol/ L 20-32 normal Not Available [address], [address], 01/07/2024 07:44:47 01/06/2001/07/2024 COMPR EHENS JUAN PABLO METAB OLIC PANEL calcium 9.5 mg/dL 8.6-10 .3 normal Not Available [address], [address], 01/07/2024 07:44:47 01/06/2001/07/2024 COMPR EHENS JUAN PABLO METAB OLIC PANEL protein, total 6.4 g/dL 6.1-8. 1 normal Not Available [address], [address], 01/07/2024 07:44:47 01/06/2001/07/2024 COMPR EHENS JUAN PABLO METAB OLIC PANEL albumin 4.1 g/dL 3.6-5. 1 normal Not Available [address], [address], 01/07/2024 07:44:47 01/06/20 24 01/07/2024 COMPR EHENS JUAN PABLO METAB OLIC PANEL globulin 2.3 g/dL_ (calc ) 1.9-3. 7 normal Not Available [address], [address], 01/07/2024 07:44:47 01/06/20 24 01/07/2024 COMPR EHENS JUAN PABLO METAB OLIC PANEL albumin/glob ulin ratio 1.8 (calc ) 1.0-2. 5 normal Not Available [address], [address], 01/07/2024 07:44:47 01/06/20 24 01/07/2024 COMPR EHENS JUAN PABLO METAB OLIC PANEL bilirubin, total 0.6 mg/dL 0.2-1. 2 normal Not Available [address], [address], 01/07/2024 07:44:47 01/06/20 24 01/07/2024 COMPR EHENS JUAN PABLO METAB OLIC PANEL alkaline phosphatase 104 U/L 35-144 normal Not Available [facility] [address], [address], 01/07/2024 07:44:47 01/06/20 24 01/07/2024 COMPR EHENS JUAN PABLO METAB OLIC PANEL AST 43 U/L 10-35 high Not Available [address], [address], 01/07/2024 07:44:47 01/06/20 24 01/07/2024 COMPR EHENS JUAN PABLO METAB OLIC PANEL ALT 36 U/L 9-46 normal Not Available [address], [address], 01/07/2024 07:44:47 01/06/20 24 01/07/2024 CBC (INCL UDES DIFF/ PLT) white blood cell count 6.5 thous and/u L 3.8-10 .8 normal Not Available [address], [address], 01/07/2024 07:44:48 01/06/20 24 01/07/2024 CBC (INCL UDES DIFF/ PLT) red blood cell count 4.27 trisha on/uL 4.20-5 .80 normal Not Available [address], [address], 01/07/2024 07:44:48 01/06/20 24 01/07/2024 CBC (INCL UDES DIFF/ PLT) hemoglobin 14.6 g/dL 13.2-1 7.1 normal Not Available [facility] [address], [address], 01/07/2024 07:44:48 01/06/20 24 01/07/2024 CBC (INCL UDES DIFF/ PLT) hematocrit 44.2 % 38.5-5 0.0 normal Not Available [address], [address], 01/07/2024 07:44:48 01/06/20 24 01/07/2024 CBC (INCL UDES DIFF/ PLT) MCV 103.5 fL 80.0-1 00.0 high Not Available [address], [address], 01/07/2024 07:44:48 01/06/2001/07/2024 CBC (INCL UDES DIFF/ PLT) MCH 34.2 pg 27.0-3 3.0 high Not Available [address], [address], 01/07/2024 07:44:48 01/06/20 24 01/07/2024 CBC (INCL UDES DIFF/ PLT) MCHC 33.0 g/dL 32.0-3 6.0 normal Not Available [address], [address], 01/07/2024 07:44:48 01/06/20 24 01/07/2024 CBC (INCL UDES DIFF/ PLT) RDW 12.2 % 11.0-1 5.0 normal Not Available [address], [address], 01/07/2024 07:44:48 01/06/20 24 01/07/2024 CBC (INCL UDES DIFF/ PLT) platelet count 258 thous and/u L 140-40 0 normal Not Available [address], [address], 01/07/2024 07:44:48 01/06/20 24 01/07/2024 CBC (INCL UDES DIFF/ PLT) MPV 11.5 fL 7.5-12 .5 normal Not Available [address], [address], 01/07/2024 07:44:48 01/06/20 24 01/07/2024 CBC (INCL UDES DIFF/ PLT) absolute neutrophils 4349 cells /uL 1500-7 800 normal Not Available [address], [address], 01/07/2024 07:44:48 01/06/20 24 01/07/2024 CBC (INCL UDES DIFF/ PLT) absolute lymphocytes 1391 cells /uL 850-39 00 normal Not Available [address], [address], 01/07/2024 07:44:48 01/06/20 24 01/07/2024 CBC (INCL UDES DIFF/ PLT) absolute monocytes 605 cells /uL 200-95 0 normal Not Available [address], [address], 01/07/2024 07:44:48 01/06/20 24 01/07/2024 CBC (INCL UDES DIFF/ PLT) absolute eosinophils 124 cells /uL 15-500 normal Not Available [address], [address], 01/07/2024 07:44:48 01/06/20 24 01/07/2024 CBC (INCL UDES DIFF/ PLT) absolute basophils 33 cells /uL 0-200 normal Not Available [facility] [address], [address], 01/07/2024 07:44:48 01/06/20 24 01/07/2024 CBC (INCL UDES DIFF/ PLT) neutrophils 66.9 % normal Not Available [address], [address], 01/07/2024 07:44:48 01/06/20 24 01/07/2024 CBC (INCL UDES DIFF/ PLT) lymphocytes 21.4 % normal Not Available [address] [place], [address], 01/07/2024 07:44:48 01/06/20 24 01/07/2024 CBC (INCL UDES DIFF/ PLT) monocytes 9.3 % normal Not Available [address] [place], [address], 01/07/2024 07:44:48 01/06/20 24 01/07/2024 CBC (INCL UDES DIFF/ PLT) eosinophils 1.9 % normal Not Available [facility] [address], [address], 01/07/2024 07:44:48 01/06/20 24 01/07/2024 CBC (INCL UDES DIFF/ PLT) basophils 0.5 % normal Not Available [address], [address], 01/07/2024 07:44:48 01/06/20 24 01/07/2024 PSA, TOTAL PSA, total 0.42 NG/mL < or = 4.00 normal The total PSA value from this assay syste m is stand ardiz ed again st the WHO stand lisset. The test resul t will be appro ximat jared 20% lower when jacklyn red to the equim olar- stand ardiz ed total PSA ([place] man Coult er). Jacklyn rison of seria l PSA resul ts shoul d be inter prete d with this fact in mind. This test was perfo rmed using the Sieme ns chemi lumin escen t metho d. Value s obtai vadim from diffe rent assay metho ds canno t be used inter sampson eably . PSA level s, regar dless of value , shoul d not be inter prete d as absol shawnee evide nce of the prese nce or absen ce of disea se. Not Available [facility] [address], [address], 01/07/2024 07:44:48 09/26/19 22 09/25/2021 pharm acolo gic nucle ar stres s test No observ ation record ed. MIGRATION. [id number] [facility] [address], [place], [address], 07/17/2022 14:26:36 10/01/19 22 09/25/2021 , echoc ardio gram No observ ation record ed. MIGRATION. [id number] [facility] [address], [place], [address], 07/17/2022 14:26:36 11/02/19 22 11/01/2021 PFT, compl ete No observ ation record ed. MIGRATION. [id number] [facility] [address], [place], [address], 07/17/2022 14:26:36 06/12/19 23 LDCT, chest , for lung cance r scree stephane [facility] [place] [address] Patien t Name: GOLDEN BARKSDALE Access ion #: [id number] Sex: M : 1950 7 Locati on: RA2 Attend ing Physic jennifer: TIP MATHUR CE Orderi Physic jennifer: TIP MATHUR CE Exam Date: 023 9:59 AM Exam Name: CT LOW DOSE CANCER SCREEN ING Admitt ing Diagno sis(es ): RADIOL OGY REPORT - FINAL EXAM: CT LOW DOSE CANCER SCREEN ING HISTOR Y: Low-do se CT lung carcin jeancarlos screen ing examin ation, 71-yea r-old male, 44 pack year cigare tte smokin g histor y. COMPAR JOSY: 2021 TECHNI QUE: The chest is evalua shena withou t intrav enous contra st, perfor med as a low-do se CT lung carcin jeancarlos screen ing examin [facility]. Axial images are recons tructe d in the shin l, sagitt al, and axial planes and are review ed with medias tinal lung window s settin gs. This CT exam was perfor med using one or more of the follow ing dose reduct ion techni ques: Automa shena exposu re contro l, adjust ment of the mA and/or kV accord ing to patien t size, or use of iterat juan pablo recons tructi on techni que. Page 1 of 3 [facility] Patien t Name: GOLDEN BARKSDALE Access ion #: [id number] Sex: M : 1950 7 Exam Date: 023 9:59 AM Exam Name: CT LOW DOSE CANCER SCREEN ING Admitt ing Diagno sis(es ): FINDIN GS: Heart: Normal size, no perica rdial effusi on Vascul ar struct ures: Shin ry artery calcif icatio ns. No eviden ce of an aneury sm. Pleura l space: No acute proces s Lungs: *Tract ion bronch iectat ic change s-fibr osis at both lung bases left greate r than right. *Linea r scarri ng noted at the left base, image [id number] 9, slight ly dimini shed. *Pranay eptal and centri lobula r emphys ematou s residu als noted. Medias tinum: Small stable inflam matory size medias tinal lymph nodes. Calcif ied granul omatou s change s noted. Osseou s struct ures: Multil evel degene rative change s. Extrat horaci c soft tissue s: No acute proces s Upper abdome n: 34 mm simple cyst of the left kidney , image [id number] . no adrena l mass. Thicke vadim mucosa of the gastri c fundus , this could relate to lack of disten tion or signif icant pathol ogy recomm end direct visual izatio n. IMPRES MITCH: 1. Lung-R ADS 1s, negati ve. Contin ue annual screen ing with LDCT in 12 months . 2. Nonspe cific thicke vadim appear ance of the gastri c fundus , see above. Page 2 of 3 [facility] Patilori t Name: GOLDEN BARKSDALE Access ion #: [id number] Sex: M : 1950 7 Exam Date: 023 9:59 AM Exam Name: CT LOW DOSE CANCER SCREEN ING Admitt ing Diagno sis(es ): 3. Shin ry artery calcif icatio ns. 4. Change s consis tent with pulmon bonny fibros is. Create d and electr onical ly signed by: Camden curtis MD Signed Date: 9:41 AM (CT) Dictat ed by: Camden curtis MD DD: 023 9:41 AM (CT) DT: 9:41 AM (CT) Page 3 of 3 [id number] [facility] (Imaging) [address] [place], [address], 07/17/2022 14:26:36 12/07/19 23 US, abdom en, limit ed [facility] [address] [place] [address] Ck t Name: GOLDEN BARKSDALE Access ion #: [id number] Sex: M : 1950 6 Locati on: RA2 Attend ing Physic jennifer: TIP MATHUR CE Orderi ng Physic jennifer: TIP MATHUR CE Exam Date: 023 8:48 AM Exam Name: US ABD/LT D/ORG/ UQ/GB Admitt ing Diagno sis(es ): RADIOL OGY REPORT - FINAL EXAM: US ABD/LT D/ORG/ UQ/GB HISTOR Y: elevat ed lfts 72-yea r-old male with elevat ed LFTs. COMPAR JOSY: Right upper quadra nt ultras ound examin ation dated 2019 TECHNI QUE: Right upper quadra nt ultras ound was perfor med. FINDIN GS: No gallst ones, gallbl adder wall thicke stephane, or perich olecys tic free fluid. The patien t was not tender to transd ucer pressu re over the gallbl adder. No intrah epatic biliar y ductal dilata tion or liver mass. There is hepato petal portal venous color Dopple r flow. The common duct measur es 2 mm in diamet er. The partia lly visual ized pancre as is unrema rkable . The intrah epatic portio n of the IVC is patent . No upper abdomi nal aortic ectasi a. The right kidney Page 1 of 2 [facility] Patien t Name: GOLDEN BARKSDALE W Access ion #: [id number] Sex: M : 1950 6 Exam Date: 8:48 AM Exam Name: US ABD/LT D/ORG/ UQ/GB Admitt ing Diagno sis(es ): measur es 11.6 cm in length and is normal in appear ance. IMPRES MITCH: Unrema rkable right upper quadra nt ultras ound. Create d and electr onical ly signed by: Adrian viera MD Signed Date: 12:20 PM (CT) Dictat ed by: Adrian viera MD DD: 12:20 PM (CT) DT: 12:20 PM (CT) Page [address] (Imaging) [address] [place], [address], 12/06/2022 13:56:43 07/04/19 24 LDCT, chest , for lung cance r scree stephane [facility] [address] [place] [address] Patilori t Name: GOLDEN BARKSDALE Access ion #: [id number] Sex: M : 1950 6 Dictat ed By: Krishn a Bragg Attend ing Physic jennifer: TIP MATHUR Orderi ng Physic jennifer: TIP MATHUR Exam Date: 2023 09:04 AM Exam Name: CT LOW DOSE CANCER SCREEN ING Admitt ing Diagno sis(es ): CT Chest withou t intrav enous contra st INDICA TION: Curren t smoker and prior smoker , COPD TECHNI QUE: Multid etecto r spiral CT of the chest was perfor med from the lung apices to the upper abdome n. Axial, shin l and sagitt al multip lanar reform ats were perfor med. Radiat ion Dose : 1. Chest: CTDI volume is 1.3 mGy. Dose-l ength produc t is 54.1 mGy*cm The dose indica tors for CT are the volume Comput ed Tomogr aphy (CT) Dose Index (CTDIv ol) and the Dose Length Produc t (DLP), and are measur ed in units of mGy and mGy-cm , respec tively . These indica tors are not patien t dose, but values genera shena from the CT scanne r acquis ition factor s. The report includ es radiat ion exposu re data for exposu res receiv ed during this examin ation. Compar josy: None Findin gs: Lower neck: Unrema rkable Lungs: Modera te centri lobula r emphys jerri. 0.8 cm nodule in the extract wringer omedia l left lower lobe. 0.4 cm nodule in the medial left upper lobe. Heart/ Vascul ar Struct ures: Shin ry and vascul ar calcif icatio ns. Lymph Nodes: No adenop athy Pleura : No pleura l effusi on or pneumo thorax Page 1 [facility] [address] [place] [address] Patien t Name: GOLDEN BARKSDALE Access ion #: [id number] Sex: M : 1950 6 Dictat ed By: Kaz kirby Bragg Attend ing Physic jennifer: PATRICK WADE ng Physic jennifer: TIP MATHUR Exam Date: 2023 09:04 AM Exam Name: CT LOW DOSE CANCER SCREEN ING Admitt ing Diagno sis(es ): Muscul oskele belén: Degene rative change s of the spine Body wall: Unrema rkable Upper abdome n: Unrema rkable IMPRES MITCH: 0.8 cm nodule in the extract wringer omedia l left lower lobe. 0.4 cm nodule in the medial left upper lobe. Lung-R ADS Catego ry 3: 6-chary h follow -up with LDCT Electr onical ly Signed by: Kaz Bragg at 2023 09:45: 30 AM Page [address] (Imaging) [address] [place], [address], 07/04/2023 11:21:56 09/22/19 24 09/19/2023 PFT, compl ete No observ ation record ed. [address], [place], [address], 09/22/2023 12:28:29 09/24/19 24 09/19/2023 six minut e walk test* No observ ation record ed. [id number] [address] [facility], [place], [address], 09/25/2023 17:07:03 01/14/20 24 LDCT, chest , for lung cance r scree stephane [facility] [address] [facility], [place] [address] Patien t Name: GOLDEN BARKSDALE Access ion #: [id number] Sex: M : 1950 4 Dictat ed By: Kaz Bragg Attend ing Physic jennifer: TIP MATHUR CE Orderi Physic jennifer: TIP MATHUR Exam Date: 2023 12:53 PM Exam Name: CT LOW DOSE CANCER SCREEN ING Admitt ing Diagno sis(es ): CT Chest withou t intrav enous contra st INDICA TION: multip le nodule s of lung TECHNI QUE: Multid etecto r spiral CT of the chest was perfor med from the lung apices to the upper abdome n. Axial, shin l and sagitt al multip lanar reform ats were perfor med. Radiat ion Dose : 1. Chest: CTDI volume is 1.3 mGy. Dose-l ength produc t is 52.9 mGy*cm The dose indica tors for CT are the volume Comput ed Tomogr aphy (CT) Dose Index (CTDIv ol) and the Dose Length Produc t (DLP), and are measur ed in units of mGy and mGy-cm , respec tively . These indica tors are not patien t dose, but values genera shena from the CT scanne r acquis ition factor s. The report includ es radiat ion exposu re data for exposu res receiv ed during this examin ation. Compar josy: CT LOW DOSE CANCER SCREEN ING on DOS: 4, CT LOW DOSE CANCER SCREEN ING on DOS: 3, CT LOW DOSE CANCER SCREEN ING on DOS: 05/22/21 Findin gs: Lower neck: Normal thyroi d. Lungs: Modera te centri lobula r emphys jerri. Unchan ged 0.8 cm nodule in the extract wringer omedia l left lower lobe. Unchan ged 0.3 cm nodule in the medial left upper lobe ( image 33/66) . Heart/ Vascul ar Struct ures: Shin ry artery calcif icatio ns. Vascul ar calcif icatio ns of the aorta. Page 1 [facility] [place] [id number] Patien t Name: GOLDEN BARKSDALE Access ion #: [id number] Sex: M : 1950 4 Dictat ed By: Kaz Bragg Attend ing Physic jennifer: PATRICK WADE Physic jennifer: TIP MATHUR Exam Date: 2023 12:53 PM Exam Name: CT LOW DOSE CANCER SCREEN ING Admitt ing Diagno sis(es ): Lymph Nodes: No adenop athy Pleura : No pleura l effusi on or signif icant pneumo thorax . Muscul oskele belén: No acute osseou s abnorm ality. Degene rative change s of the spine. Soft tissue s: Normal . Upper abdome n: Limite d portio ns of the upper abdome n are unrema rkable . IMPRES MITCH: Unchan ged 0.8 cm nodule in the extract wringer omedia l left lower lobe. Unchan ged 0.3 cm nodule in the medial left upper lobe. LUNG RADS Catego ry 2: Contin ue annual screen ing with LDCT Radiat ion optimi zation : All CT scans at this facili ty use at least one of these dose optimi zation techni ques: automa shena exposu re contro l mA and/or kV adjust ment per patien t size (inclu aiden target ed exams where dose is matche d to clinic al indica tion) or iterat juan pablo recons tructi on. Electr onical ly Signed by: Kaz Bragg at 2023 14:31: 14 PM Page 2 [email or web address] [facility] (Imaging) [address] [place], [address], 01/14/2024 17:20:57 01/26/[address] limit ed/fo llow- up [facility] [address] [place] [address] Patien t Name: GOLDEN BARKSDALE Access ion #: [id number] Sex: M : 1950 4 Dictat ed By: Kaz Bragg Attend ing Physic jennifer: TIP MATHUR CE Orderi Physic jennifer: TIP MATHUR CE Exam Date: 2023 12:59 PM Exam Name: CT LIMITE D/FOLL OW-UP Admitt ing Diagno sis(es ): CT Chest withou t intrav enous contra st INDICA TION: multip le nodule s of lung TECHNI QUE: Multid etecto r spiral CT of the chest was perfor med from the lung apices to the upper abdome n. Axial, shin l and sagitt al multip lanar reform ats were perfor med. Radiat ion Dose : 1. Chest: CTDI volume is 1.3 mGy. Dose-l ength produc t is 52.9 mGy*cm The dose indica tors for CT are the volume Comput ed Tomogr aphy (CT) Dose Index (CTDIv ol) and the Dose Length Produc t (DLP), and are measur ed in units of mGy and mGy-cm , respec tively . These indica tors are not patien t dose, but values genera shena from the CT scanne r acquis ition factor s. The report includ es radiat ion exposu re data for exposu res receiv ed during [facility]. Compar josy: CT LOW DOSE CANCER SCREEN ING on DOS: 4, CT LOW DOSE CANCER SCREEN ING on DOS: 3, CT LOW DOSE CANCER SCREEN ING on DOS: 05/22/21 Findin gs: Lower neck: Normal thyroi d. Lungs: Modera te centri lobula r emphys jerri. Unchan ged 0.8 cm nodule in the extract wringer omedia l left lower lobe. Unchan ged 0.3 cm nodule in the medial left upper lobe ( image 33/66) . Heart/ Vascul ar Struct ures: Shin ry artery calcif icatio ns. Vascul ar calcif icatio ns of the aorta. Page 1 [facility] Y [facility] [address] [address] Patien t Name: GOLDEN BARKSDALE ion #: [id number] Sex: M : 1950 4 Dictat ed By: Kaz Bragg Attend ing Physic jennifer: PATRICK WADE Physic jennifer: TIP MATHUR Exam Date: 2023 12:59 PM Exam Name: CT LIMITE D/FOLL OW-UP Admitt ing Diagno sis(es ): Lymph Nodes: No adenop athy Pleura : No pleura l effusi on or signif icant pneumo thorax . Muscul oskele belén: No acute osseou s abnorm ality. Degene rative change s of the spine. Soft tissue s: Normal . Upper abdome n: Limite d portio ns of the upper abdome n are unrema rkable . IMPRES MITCH: Unchan ged 0.8 cm nodule in the extract wringer omedia l left lower lobe. Unchan ged 0.3 cm nodule in the medial left upper lobe. LUNG RADS Catego ry 2: Contin ue annual screen ing with LDCT Radiat ion optimi zation : All CT scans at this facili ty use at least one of these dose optimi zation techni ques: automa shena exposu re contro l mA and/or kV adjust ment per patien t size (inclu aiden target ed exams where dose is matche d to clinic al indica tion) or iterat juan pablo recons tructi on. Electr onical ly Signed by: Kaz Bragg at 2023 14:31: 14 PM Page [address] (Imaging) [address] [place], [address], 01/26/2024 09:52:07 05/27/19 25 05/26/2024 US, echoc ardio gram No observ ation record ed. [email or web address] [place] [address] [facility] [address], [place], [address], 05/27/2024 21:29:10 Result Notes None recorded. Problems Name Problem SNOMED Code Status Onset Date Resolution Date Notes Provider Name and Address Organization Details Recorded Time [facility] 33841299 Active Not Available [facility] 3 14:21:28 Benign prostatic hyperplasia 501439827 Active 2021 Not Available [facility] 3 14:21:28 Disorder of prostate 38893936 Active 2021 Not Available [facility] 3 14:21:29 Polyp of colon 27410548 Active 2018 Not Available [facility] 3 14:21:29 Hemorrhoids 94333292 Active Not Available [facility] 3 14:21:29 Fatigue 83328141 Active 2021 Not Available [facility] 3 14:21:29 Pulmonary emphysema 54975372 Active Not Available [facility] 3 14:21:29 Abnormal weight loss 525803665 Active 2022 Michael Mathur MD [address], [facility] [address], [place], [address] , [facility] [employer] [facility] 3 12:21:57 Hypercholeste rolemia 90346693 Active 2022 Yudy Whitmore null, [facility] [employer] [facility] 3 12:26:55 Liver enzymes level above reference range 742057047 Active 2022 Radha HarrySITA null, [place] [address] [facility] [employer] [facility] 3 12:56:42 Multiple nodules of lung 479043660 Active 2023 Michael Mathur MD [address], [facility] [address], [place], [address] , [facility] [address] [facility] [employer] [facility] 4 12:01:57 COVID-19 568511556 Active 2023 Michael Mathur MD [address], [place] [address], [place], [address] , [facility] [address] [facility] [employer] [facility] 4 12:23:48 Problem Notes None recorded. Procedures Surgical History Date Name Laterality Status Provider Name and Address Organization Details Recorded Time 4 Medicare Wellness CPT Code, subsequent completed Liyah Burris RN [facility] [employer] [facility] 07/04/2023 10:55:17 Imaging Results Imaging Date Name Status LastModified by Organization Details LastModified Time 06/12/2022 LDCT, chest, for lung cancer screening completed [id number] [facility] (Imaging) [address] [place], [address], 07/17/2022 14:26:36 09/25/2021 US, echocardiogram completed MIGRATION .[id number] [facility] [address], [place], [address], 07/17/2022 14:26:36 09/25/2021 pharmacologic nuclear stress test completed MIGRATION.490346 9780 [facility] [address], [place], [address], 07/17/2022 14:26:36 11/01/2021 PFT, complete completed MIGRATION.0301 23 0026 [facility] [address], [place], [address], 07/17/2022 14:26:36 12/06/2022 US, abdomen, limited completed [address] (Imaging) [address] [place], [address], 12/06/2022 13:56:43 07/04/2023 LDCT, chest, for lung cancer screening completed [address] (Imaging) [address] [place], [address], 07/04/2023 11:21:56 09/19/2023 PFT, complete completed [address], [address], 09/22/2023 12:28:29 09/19/2023 six minute walk test* completed [address], [address], 09/25/2023 17:07:03 01/14/2024 LDCT, chest, for lung cancer screening completed [address] (Imaging) [address] [place], [address], 01/14/2024 17:20:57 01/26/2024 CT limited/follow-up completed [address] (Imaging) [address] [place], [address], 01/26/2024 09:52:07 05/26/2024 US, echocardiogram [address] [facility] [address], [place], [address], 05/27/2024 21:29:10 Procedure Notes None recorded. Medical Equipment None Reported. Medications Name Sig Start Date Stop Date Status Note LastModified by Organization Details LastModified Time cyclobenzap rine 10 mg tablet Take 1 tablet three times daily 11/15 completed Not Available Not Available Not Available amoxicillin 500 mg capsule TAKE 2 CAPSULES BY MOUTH NOW THEN 1 CAPSULE THREE TIMES DAILY UNTIL GONE. 10/24 completed Not Available Not Available Not Available Anusol-HC 2.5 % rectal cream with applicator Insert 1 applicati on 4 times a day by rectal route. 11/15 completed Not Available Not Available Not Available [place] 7.5 mg-325 mg tablet Take 1 tablet every 6 hours by oral route. 11/15 completed Not Available Not Available Not Available methylpredn isolone 4 mg tablets in a dose pack Take by oral route as per package insert 11/15 completed Not Available Not Available Not Available Trelegy Ellipta 100 mcg-62.5 mcg-25 mcg powder for inhalation INHALE 1 PUFF BY MOUTH EVERY 24 HOURS FOR COPD FOR ONE MONTH. TAKE DOSE AT THE SAME TIME DAILY, RINSE AND SPIT active Not Available Not Available No t Available Paxlovid 300 mg (150 mg x 2)-100 mg tablets in a dose pack TAKE 3 TABLETS TOGETHER (TWO 150 MG NIRMATREL VIR TABLETS AND ONE 100 MG RITONAVIR TABLET) BY MOUTH TWICE DAILY FOR 5 DAYS. active Not Available Not Available No t Available Vitals Date Recorded Body mass index (BMI) Body height Oxygen saturation Oxygen saturation in Arterial blood by Pulse oximetry Heart rate Body temperature Body weight Systolic blood pressure Diastolic blood pressure Provider Name and Address Organization Details Last Updated DateTime 2 17.6 kg/m2 172.72 cm 93 % 93 % 113 /min 97 [degF] 56414.7 1 g 118 mm[Hg] 70 mm[Hg] Not Available [facility] 3 14:18:40 Date Recorded Body mass index (BMI) Body height Oxygen saturation Oxygen saturation in Arterial blood by Pulse oximetry Heart rate Body temperature Body weight Systolic blood pressure Diastolic blood pressure Provider Name and Address Organization Details Last Updated DateTime 2 17 kg/m2 175.26 cm 95 % 95 % 79 /min 96.9 [degF] 91454.1 2 g 122 mm[Hg] 84 mm[Hg] Not Available [facility] 3 14:18:40 Date Recorded Body height Body mass index (BMI) Body weight Heart rate Body temperature Oxygen saturation Oxygen saturation in Arterial blood by Pulse oximetry Systolic blood pressure Diastolic blood pressure Provider Name and Address Organization Details Last Updated DateTime 3 175.26 cm 16.8 kg/m2 00606.5 3 g 85 /min 97 [degF] 92 % 92 % 120 mm[Hg] 64 mm[Hg] Maura Noguera [place] [address] [facility] [employer] [facility] 3 12:04:21 Date Recorded Body height Body mass index (BMI) Body weight Heart rate Body temperature Oxygen saturation Oxygen saturation in Arterial blood by Pulse oximetry Systolic blood pressure Diastolic blood pressure Provider Name and Address Organization Details Last Updated DateTime 4 175.26 cm 17.6 kg/m2 72999.4 9 g 80 /min 97.4 [degF] 90 % 90 % 136 mm[Hg] 88 mm[Hg] Keisha Robb Ozzy [place] [address] [facility] [employer] [facility] 4 10:54:20 Date Recorded Body height Body mass index (BMI) Body weight Heart rate Body temperature Oxygen saturation Oxygen saturation in Arterial blood by Pulse oximetry Systolic blood pressure Diastolic blood pressure Provider Name and Address Organization Details Last Updated DateTime 4 175.26 cm 17.4 kg/m2 05012.9 g 70 /min 97.4 [degF] 90 % 90 % 132 mm[Hg] 80 mm[Hg] Keisha Robb Ozzy [place] [address] [facility] [employer] [facility] 4 11:32:31 Social History Question Answer Notes LastModified by Organizat ion Details LastModified Time Tobacco Smoking Status Current Every Day Smoker Not Available [facility] 07/17/2022 14:15:59 Do You Have An Advance Directive? No MIGRATION.99591 42520 Information not available 07/17/2022 What Is Your Level Of Alcohol Consumption? None [email or web address] Information not available 07/04/2023 Are You Blind Or Do You Have Difficulty Seeing? No MIGRATION.14776 05444 Information not available 07/17/2022 Are You Deaf Or Do You Have Serious Difficulty Hearing? No MIGRATION.29918 43928 Information not available 07/17/2022 What Type Of Diet Are You Following? REGULAR MIGRATION.67178 31599 Information not available 07/17/2022 Do You Or Have You Ever Used E-cigarettes Or Vape? Never Used Electronic Cigarettes MIGRATION.64561 50131 Information not available 07/17/2022 Have There Been Any Changes To Your Family Or Social Situation? No MIGRATION.87766 65160 Information not available 07/17/2022 What Is The Fluoride Status Of Your Home? Unknown MIGRATION.99033 41198 Information not available 07/17/2022 Are There Any Guns Present In Your Home? No MIGRATION.48029 65710 Information not available 07/17/2022 Do You Use Insect Repellent Routinely? Yes MIGRATION.13956 69459 Information not available 07/17/2022 Where Do You Live? [facility] MIGRATION.80845 40357 Information not available 07/17/2022 Guns Present In The Home? No [email or web address] Information not available 07/04/2023 Are You Able To Care For Yourself? Yes [email or web address] Information not available 07/04/2023 Are You Blind Or Do Yo Have Difficulty Seeing? No [email or web address] Information not available 07/04/2023 Are You Deaf Or Do You Have Serious Difficulty Hearing? No [email or web address] Information not available 07/04/2023 Live Alone Of With Others? With Others [email or web address] Information not available 07/04/2023 What Was The Date Of Your Most Recent Tobacco Screening? 07/04/2023 [email or web address] Information not available 07/04/2023 Do You Have Any Pets? Yes [email or web address] Information not available 07/04/2023 What Is Your Relationship Status? MIGRATION.68827 46147 Information not available 07/17/2022 Do You Use Your Seat Belt Or Car Seat Routinely? Yes [email or web address] Information not available 07/04/2023 Do You Have Smoke And Carbon Monoxide Detectors In Your Home? Yes MIGRATION.11415 53230 Information not available 07/17/2022 At What Age Did You Start Smoking Tobacco? 14 MIGRATION.97734 26178 Information not available 07/17/2022 Are You Passively Exposed To Smoke? Yes MIGRATION.26368 95695 Information not available 07/17/2022 Are There Any Smokers In Your House? Yes MIGRATION.52165 70436 Information not available 07/17/2022 How Much Tobacco Do You Smoke? 1 PPD MIGRATION.36806 07872 Information not available 07/17/2022 Do You Use Sunscreen Routinely? No MIGRATION.18305 49191 Information not available 07/17/2022 How Many Years Have You Smoked Tobacco? 50 MIGRATION.15635 61039 Information not available 07/17/2022 Have You Recently Traveled Abroad? No MIGRATION.68704 75054 Information not available 07/17/2022 Do You Have Any Dietary Restrictions? No MIGRATION.25607 51002 Information not available 07/17/2022 Sex: Unknown Functional Status Question Answer Note LastModified by Organizat ion Details LastModified Time Do you have difficulty walking or climbing stairs? No MIGRATION.5841250 026 Information not available 07/17/2022 Do you have transportation difficulties? No MIGRATION.6188513 026 Information not available 07/17/2022 Are you able to walk? YESWOREST MIGRATION.7754471 026 Information not available 07/17/2022 Do you have difficulty doing errands alone? No MIGRATION.7009477 026 Information not available 07/17/2022 Are you able to care for yourself? Yes MIGRATION.9231755 026 Information not available 07/17/2022 Do you have difficulty dressing or bathing? No MIGRATION.0276324 026 Information not available 07/17/2022 What is your exercise level? Occasional MIGRATION.3587227 026 Information not available 07/17/2022 Mental Status Question Answer Note LastModified by Organizat ion Details LastModified Time Do you have difficulty concentrating, remembering or making decisions? No MIGRATION.[id number] 6 Information not available 07/17/2022 Family History Nothing Reported Notes:Mother 72 fro m complications related to diabetes and hypertension. Father at 72 from COPD and a fall. Has two brothers living Seven sisters five living one diet of cancer and the other from some neurological process which he does not know the nature of. Another has had a CVA One brother has Parkinsonism Medical History Condition Response BLINDNESS N NERVE DISEASE N RHEUMATIC FEVER N BLADDER PROBLEMS N KIDNEY STONES N MRSA N OTHER # 1 N POLIO N LUNG DISEASE/DISORDER N HISTORY OF DRUG ABUSE N RADIATION / CHEMOTHERAPY N COPD N Other # 2 N BLOOD DISEASES N EAR OR HEARING PROBLEMS N MUMPS N SHINGLES N BOWEL PROBLEMS N DEPRESSION (INCLUDING POST ) N STROKE/TIA N ULCERS N BENIGN PROSTATIC HYPERPLASIA N MEASLES N HYPOTENSION N MYOCARDIAL INFARCTION N OBESITY N GERD/NAUSEA N ANEURYSM N URINARY/BLADDER/KIDNEY PROBLEMS N CORONARY ARTERY DISEASE (CAD) N ADDICTION CONCERNS N Impotence N ENDOMETRIOSIS N USE OF BLOOD THINNERS N SKIN PROBLEMS N GASTROINTESTINAL DISORDER N PERIPHERAL VASCULAR DISEASE N MUSCLE,JOINT OR BONE PROBLEMS N GASTROINTESTINAL BLEEDING N BLOOD CLOTS N ASTHMA N CATARACTS N ERECTILE DYSFUNCTION N VARICOSITIES N GI PROBLEMS N Low Testosterone N INFERTILITY N AIDS/HIV N CHEMOTHERAPY / RADIATION N LIVER DISEASE N MALE HYPOGONADISM N HYPERTENSION N Deficiency N TOURETTE'S N ANXIETY DISORDER N BLOOD TRANSFUSION N ANEMIA/BLOOD DISORDER N CHRONIC EAR INFECTIONS N BRONCHITIS N TUBERCULOSIS N GLAUCOMA N FOOT PROBLEM N DIVERTICULITIS N SLEEP APNEA N CHICKENPOX N INFECTIOUS DISEASE N PROSTATE N HEART ARRHYTHMIA N INSOMNIA N HIGH CHOLESTEROL / HYPERLIPIDEMIA N EYE PROBLEMS N HYPERTHYROIDISM N EDEMA N CHRONIC PAIN SYNDROME N HYPOTHYROIDISM N CAROTID BLOCKAGE N CONSTIPATION N BACK / NECK PROBLEMS N HAVE YOU BEEN HOSPITALIZED OR SEEN IN [facility] IN THE PAST YEAR ? N ATHEROSCLEROSIS N BREAST PROBLEMS N DIALYSIS N ECZEMA N OSTEOPOROSIS N ARTHRITIS N NO SIGNIFICANT PAST MEDICAL HISTORY N APPENDICITIS N DIABETES, TYPE N BAD TEETH N ENT N HEARTBURN / REFLUX N AUTISM SPECTRUM DISORDER (ASD) N HEPATITIS / LIVER DISEASE N GOUT N SLEEP DISORDER N ALZHEIMER'S DISEASE N Brain Problems N DEMENTIA N HERPES N SEIZURES/EPILEPSY N HEADACHES/MIGRAINES N VASCULAR DISEASE N PACEMAKER N Blood Disorder N DIZZINESS N HEART DISEASE/HEART PROBLEMS N KIDNEY DISEASE N MULTIPLE SCLEROSIS N CANCER: SPECIFY N CARDIAC ARRHYTHMIA N ATRIAL FIBRILLATION N Gall Stones N PULMONARY EMBOLISM N AUTOIMMUNE DISEASE N Past Encounters Encounter ID Performer Location Encounter Start Date Encounter Closed Date Diagnosis/Indication Diagnosis SNOMED-CT Code Diagnosis ICD10 Code Diagnosis Note [id number] [facility] [place] [address] 10/24/2020 00:00:00 10/24/2020 14:09:17 [id number] [facility] [place] [address] 04/24/2021 00:00:00 04/24/2021 11:47:21 [id number] [facility] Internal Med [address] [place] [address] 10/23/2021 00:00:00 10/23/2021 11:29:57 [id number] [facility] Internal Med [place] [address] [place] [address] y , [place] [address] 04/23/2022 00:00:00 04/23/2022 12:07:32 [id number] Michael Mathur MD [facility] Internal Med [place] [address] [place] [address] y , [place] [address] 11/12/2022 11:50:08 11/12/2022 12:27:58 Benign prostatic hyperplasia 750541589 N40.0 Polyp of colon 60039969 K63.5 Pulmonary emphysema 8743 3001 J43.9 Disorder of prostate 302 41570 N42.9 Abnormal weight loss 267 697548 R63.4 [id number] Michael Mathur MD [facility] Internal Med [place] [address] [place] [address] y , [place] [address] 07/04/2023 10:33:26 07/04/2023 11:38:10 Adult health examination 388072913 Z00.00 Screening for disorder 879660825 Z13.9 Hypercholesterolemia 136 98217 E78.00 Pulmonary emphysema 8743 3001 J43.9 Polyp of colon 44890866 K63.5 [id number] Michael Mathur MD [facility] Internal Med [place] [address] [place] [address] y , [place] [address] 01/01/2024 11:20:39 01/01/2024 12:10:25 Hypercholesterolemia 14486422 E78.00 Pulmonary emphysema 8743 3001 J43.9 Benign pro static hyperplasia 962601016 N40.0 Multiple n odules of lung 693574429 R91.8 Health Concerns Section Related Observation LastModified by Organization Detai ls LastModified Time None Recorded Concern Status LastModified by Organization Details LastModified Time None Recorded Advance Directives Directive N: Payers Encounter Date Sequence Insurance Name Policy Number Policy Mueller Covered Member ID Mueller Member ID Guarantor Name 11/12/2022 1 [facility] (MEDICARE REPLACEMENT/A DVANTAGE - PPO) [id number] Golden Barksdale [id number] Golden Barksdale 07/04/2023 1 [facility] (MEDICARE REPLACEMENT/A DVANTAGE - PPO) [id number] Golden Barksdale [id number] Golden Barksdale 01/01/2024 1 [facility] (MEDICARE REPLACEMENT/A DVANTAGE - PPO) [id number] Golden Barksdale [id number] Golden Barksdale Notes Date Note Type Note Provider Name and Address Organization Details Recorded Time 11/12/2022 text/html Patient Name: Daysi Sonate Of Service: Friday ( 11.12.2022 ): 1950 Age: 72 Vital Signs:Blood Pressure: Sitting Rt. Arm 120/64Pulse: Sitting 85 /min and RegularRespirations: 20Height 69 in or 1.8 mWeight 114 lb or 51.7 kgBMI 16.8Temperature: 97 F or 36.1 CPulse Oximetry: 92 % at rest on no oxygen Chief Complaint: Addressed in HPI Problems or conditions discussed in the HPI were the only ones reviewed during the encounter.Only social and family history addressed in the HPI were reviewed during this encounter. Attendant(s): None Constitutional and Systemic Symptoms: none Medication Reconciliation: from medication list. Tegrjibzlxn30/25/2023: Low-dose CT scan the chest from 06/11/2019 3- for any malignancy. Nonspecific thickening of the gastric fundus is noted but having no gastrointestinal symptomatology. History of Present Illness #1. COPD: Hx of Emphysema currently stable. There has been some decrease in exercise tolerance an shortness of breath. No change in sputum production, color or consistency. No fever, chills, weight loss or other constitutional symptoms. Gold Scale: Mild. MRC Scale: normal walking. Smoking: currently smoking and instructed once again on cessation techniques Current medications: none Using nebulizer Treatments: No. Uses does not use supplemental oxygen #2. Hx of BPH currently stable. No change in strength or initiation of urinary stream. No post voiding problems. No hx of any fever or chills. Currently taking no medications. #3. Colon polyps: Hx of colon polyps. No interval complaints of any bleeding or change in bowel habits. Last colonoscopy was four years ago.Social HistorySmokes two packs daily for 30 + years. Drinks approximately a six pack daily. Works construction.Family HistoryMother 72 from complications related to diabetes and hypertension.Father at 72 from COPD and a fall.Has two brothers livingSeven sisters five living one diet of cancer and the other from some neurological process which he does not know the nature of. Another has had a CVAOne brother has Parkinsonism Michael Mathur MD [address], [address], [place], [address], [place] [facility] [employer] [facility] 11/12/2022 12:22:52 07/04/2023 text/html Patient Name: Daysi jones MccreaDate Of Service: Friday ( 07.04.2023 ): 1950 Age: 73 There has been approximately a 5 lb weight gain since 11/12/2022. This represents approximately a 4.4% change in weight. Weight change attributable to lifestyle changes. Vital Signs:Blood Pressure: Sitting Rt. Arm 136/88Pulse: Sitting 80 /min and RegularRespiratory Rate: 12Height 70 in or 1.8 mWeight 119 lb or 54.0 kgBMI 17.1Temperature: 97.4 F or 36.3 CPulse Oximetry: 90 % at rest on no oxygen Chief Complaint: Addressed in HPI Problems or conditions discussed in the HPI were the only ones reviewed during the encounter.Only social and family history addressed in the HPI were reviewed during this encounter. A significant, separate E/M service was performed to evaluate the current and new problems. Attendant(s): NoneConstitutional and Systemic Symptoms:none Medication Reconciliation: from medication list. AnnotationsLow-dose CT scan the chest from 06/11/2019 3- for any malignancy. Nonspecific thickening of the gastric fundus is noted but having no gastrointestinal symptomatology. 12/06/2022: Ultrasound the abdomen negative for any gallstones. No other significant pathology noted. History of Present Illness Reviewed the findings of the preventative health visit. Addressed all areas with the patient, patient's family or caregivers. Preventative examinations and testing immunizations - vaccinations, colonic neoplasm screening and PSA all reviewed and ordered where patient was amenable to the recommendations. Cognitive function was normal. Depression addressed and where necessary medications were adjusted or instituted. End of life and living will briefly discussed with patient and where these can be filled out and legally executed. Other blood and imaging studies were ordered if considered necessary. Other recommendations may be found in the encounter note. #1. Type II Hypercholesterolaemia: Currently taking medication and tolerating well. No interval complaints of any muscle pain or arthralgia. No significant liver changes with medications. Last lipid panel: fair control. Therapy reviewed regarding treatment of cholesterol management and include diet. #2. COPD: Hx of Emphysema currently stable. There has been no interval change in exercise tolerance an shortness of breath. No change in sputum production, color or consistency. No fever, chills, weight loss or other constitutional symptoms. Gold Scale: Mild. MRC Scale: vigorous walking. Smoking: currently smoking and instructed once again on cessation techniques Current medications: none Using nebulizer Treatments: No. Uses does not use supplemental oxygen #3. Colon polyps: Hx of colon polyps. No interval complaints of any bleeding or change in bowel habits. Last colonoscopy was four years ago. Social HistorySmokes two packs daily for 30 + years. Drinks approximately a six pack daily. Works construction. Family HistoryMother 72 from complications related to diabetes and hypertension.Father at 72 from COPD and a fall.Has two brothers livingSeven sisters five living one diet of cancer and the other from some neurological process which he does not know the nature of. Another has had a CVAOne brother has Parkinsonism Michael Mathur MD [address] [place] [address], [place], [address], [place] [facility] [employer] 07/04/2023 11:29:25 01/01/2024 text/html Patient Name: Daysi jones MccreaDate Of Service: December ( 01.01.2024 ): 1950 Age: 73 Vital Signs:Blood Pressure: Sitting Rt. Arm 132/80Pulse: Sitting 70 /min and RegularRespiratory Rate: 18Height 69 in or 1.8 mWeight 118 lb or 53.5 kgBMI 17.4Temperature: 97.4 F or 36.3 CPulse Oximetry: 70 % at rest on no oxygen Chief Complaint: Addressed in HPI Problems or conditions discussed in the HPI were the only ones reviewed during the encounter.Only social and family history addressed in the HPI were reviewed during this encounter. Attendant(s): NoneConstitutional and Systemic Symptoms:none Medication Reconciliation: from medication list. AnnotationsLow-dose CT scan the chest from 06/11/2019 3- for any malignancy. Nonspecific thickening of the gastric fundus is noted but having no gastrointestinal symptomatology. 12/06/2022: Ultrasound the abdomen negative for any gallstones. No other significant pathology noted. History of Present Illness #1. COPD: Hx of Emphysema currently stable. There has been no interval change in exercise tolerance an shortness of breath. No change in sputum production, color or consistency. No fever, chills, weight loss or other constitutional symptoms. Gold Scale: Moderate. MRC Scale: normal walking. Smoking: currently smoking and instructed once again on cessation techniques Current medications: Trelegy Ellipta Using nebulizer Treatments: No. Uses supplemental oxygen #2. Type II Hypercholesterolaemia: Currently taking medication and tolerating well. No interval complaints of any muscle pain or arthralgia. No significant liver changes with medications. Last lipid panel: fair control. Therapy reviewed regarding treatment of cholesterol management and include diet. #3. Hx of BPH currently stable. No change in strength or initiation of urinary stream. No post voiding problems. No hx of any fever or chills. Currently taking no medications. #4. Had a previous low-dose CT scan the chest done back in June. It is recommended he have a repeat CT scan for two small nodules in the lower lobes. Will set this up.: Active Medication ListTrelegy Ellipta 100; 62.5; UG; UG POWDER Inhale 1 Puff Q24h For One Month Social HistorySmokes two packs daily for 30 + years. Drinks approximately a six pack daily. Works construction. Family HistoryMother 72 from complications related to diabetes and hypertension.Father at 72 from COPD and a fall.Has two brothers livingSeven sisters five living one diet of cancer and the other from some neurological process which he does not know the nature of. Another has had a CVAOne brother has Parkinsonism Michael Mathur MD [address] [facility], [facility] [address], [place], [address], [facility] 01/01/2024 12:07:01
== END 2024-06-10 09:52 | disposition home or self-care (01) ==
PROVIDERS: PCP Internal Medicine; Visit Provider Internal Medicine Gastroenterology
PROC: 0DJD8ZZ Inspection of Lower Intestinal Tract, Via Natural or Artificial Opening Endoscopic (ICD-10-PCS; CPT 45378; principal; 2024-06-10 10:00)
DX: Z12.11 Encounter for screening for malignant neoplasm of colon (principal); D12.2 Benign neoplasm of ascending colon; D12.0 Benign neoplasm of cecum; K64.8 Other hemorrhoids; F17.210 Nicotine dependence, cigarettes, uncomplicated
CPT/HCPCS: 45385; 45380; 88305; J2003; J2704; J7120

== ENCOUNTER 2024-06-17 16:20 | Emergency (ER) | payer MEDICARE, SELFPAY ==
[2024-06-17] VITALS (52 sets, daily range): BP systolic 83–183; BP diastolic 24–139; PULSE 76–91; RESP 12–28; O2SAT 88–100
--- NOTE | ~2024-06-17 | CT_ITS ---
EXAMINATION: CT brain wo con DATE: 06/17/2024 16:31 INDICATION: Cerebrovascular accident. TECHNIQUE: Computed tomography (CT) of the head was performed without intravenous contrast. The mA wa s adjusted according to patient size. Iterative reconstruction technique was employed. The dose-lengt h product was 605.33 mGy-cm. COMPARISON: None FINDINGS: There is an old lacunar infarct in right caudate nucleus. There are scattered areas of low attenuation in the cerebral white matter. There is no intracranial hemorrhage, acute infarction, or a bnormal intracranial mass lesion. The ventricles are normal in size. The orbits are normal. There is mucosal thickening in the paranasal sinuses. The mastoid air cells are normal. IMPRESSION: 1. Old lacunar infarct in the right caudate nucleus. 2. Moderate nonspecific cerebral white matter disease, which likely represents chronic small vessel i schemic disease. 3. I discussed this case with Dr. Mcclellan. Reviewed, dictated and finalized at location A. RICT ADMINISTRATIVE ASSISTANT IMPRESSION: 1. Old lacunar infarct in the right caudate nucleus. 2. Moderate nonspecific cerebral white matter disease, which likely represents chronic small vessel ischemic disease. 3. I discussed this case with Dr. Mcclellan.
--- NOTE | ~2024-06-17 | CT_ITS ---
EXAMINATION: CTA brain carotid DATE: 06/17/2024 19:36 INDICATION: Aphasia TECHNIQUE: Computed tomographic angiography (CTA) of the head and neck was performed with 100 mL Omni paque-350 intravenous contrast. Automated exposure control and iterative reconstruction technique wer e employed. The dose-length product was 1321.88 mGy-cm. Maximum intensity projection and volume rende red 3D-reconstructions were created by the technologist on a separate workstation. COMPARISON: CT brain, same date. FINDINGS: CTA HEAD: No large vessel occlusion, aneurysm, high flow vascular malformation, nidus or extravasation. Bilater al cavernous carotid atherosclerotic calcifications, moderate on the left. Bilateral inferior maxilla ry sinus retention cysts/polyps. Hypoplastic appearing right sigmoid sinus and internal jugular vein. Otherwise normal-appearing patent cerebral veins. Symmetric parenchymal enhancement CTA NECK: Aortic arch and proximal great vessels: Normal arch anatomy. Atherosclerotic calcifications at the vi sualized aortic arch and proximal great vessels. Right common carotid, carotid bifurcation, and internal carotid artery: Significant calcified and non calcified atherosclerotic plaque at the carotid bifurcation, with near occlusion.There is well over 7 5%% stenosis of the proximal right internal carotid artery relative to normal distal artery lumen jenna meter (NASCET criteria), with only pinpoint flow remaining. Left common carotid, carotid bifurcation, and internal carotid artery: Significant calcified and nonc alcified atherosclerotic plaque at the carotid bifurcation.There is 67% stenosis of the proximal left internal carotid artery relative to normal distal artery lumen diameter (NASCET criteria). Vertebral arteries: No significant plaque or stenosis. Left vertebral artery is dominant. Other findings: Severe emphysema. Degenerative changes in the cervical spine. Periodontal disease. IMPRESSION: No large vessel intracranial occlusion, high-grade intracranial stenosis, or aneurysm. No carotid or vertebral artery occlusion or dissection. Near occlusion of the proximal right internal carotid artery. Moderate stenosis (67% by NASCET criteria) of the proximal left internal carotid artery. Reviewed, dictated and finalized at location K. GEMENT SCIENTIST IMPRESSION: No large vessel intracranial occlusion, high-grade intracranial stenosis, or an eurysm. No carotid or vertebral artery occlusion or dissection. Near occlusion of the proximal right internal carotid artery. Moderate stenosis (67% by NASCET criteria) of the proximal left internal caroti d artery.
--- NOTE | ~2024-06-17 | XR_ITS ---
EXAMINATION: XR chest 1V portable Exam Date/Time: 06/17/2024 17:03 SLAB LIFTING SUPERVISOR HISTORY: cva Comparison: None. RESULT: Lines, tubes, and devices: None. Lungs and pleura: Senescent change, otherwise clear. Left hemidiaphragm elevation. Cardiomediastinal silhouette: Stable. Dilated central pulmonary arteries as can be seen with pulmona ry arterial hypertension. Other: No acute osseous or upper abdominal finding. IMPRESSION: No acute cardiopulmonary process. Left hemidiaphragm elevation, consider outpatient evaluation with the fluoroscopic sniff test to excl ude diaphragmatic paralysis. Reviewed, dictated and finalized at location K. LIFTING SUPERVISOR IMPRESSION: No acute cardiopulmonary process. Left hemidiaphragm elevation, consider outpatient evaluation with the fluorosco pic sniff test to exclude diaphragmatic paralysis.
--- NOTE | 2024-06-17 16:21 | ECG_ITS ---
Test Date: 2024-06-17 16:43:06 Measurements Intervals Jen[place] Rate: 76 P: 73 [place]: 150 QRS: 65 QRSD: 85 T: 43 QT: 394 QTc: 445 Interpretive Statements SINUS RHYTHM POSSIBLE LEFT ATRIAL ENLARGEMENT [-0.1mV P WAVE IN V1/V2] No previous ECG available for comparison Electronically Signed On 06-18-2024 14:15:14 BLISTER PACK OPERATOR by Derrick Sanchez M.D.
[2024-06-17 16:39] LABS: Basophils Percent Auto 0.5 % (0.2-1.2); Eosinophils Absolute Auto 0.1 K/mm3 (0-0.3); Eosinophils Percent Auto 0.8 % (0-4.4); Hemoglobin 14.7 g/dL (14.0-18.0); Immature Granulocyte Absolute 0.02 K/mm3 (0.00-0.031); Immature Granulocyte Percent A 0.2 % (0-0.5); Lymphocytes Absolute Auto 1.75 K/mm3 (0.9-3.2); Mean Corpuscular HGB Conc 33.4 g/dl (32-36); Mean Corpuscular Hemoglobin 33.9 pg (26-34); Mean Corpuscular Volume 101.6 fl (80-100); Mean Platelet Volume 10.5 fl (7.4-10.4); Monocytes Absolute Auto 0.9 K/mm3 (0.1-0.6); Monocytes Percent Auto 10.5 % (2.6-8.5); Neutrophils Absolute Auto 5.9 K/mm3 (1.3-6.7); Platelet Count Result 224 k/mm3 (150-375); Red Blood Count 4.33 M/mm3 (4.6-6.20); Red Cell Distribution Width 12.3 % (11.5-14.5); White Blood Count 8.7 K/mm3 (4.5-10.0)
[2024-06-17 16:53] LABS: Prothrombin Time 13.6 Seconds (11.1-14.7)
[2024-06-17 16:54] LABS: Ethanol 13 mg/dL (<10); Partial Thromboplastin Time 31.5 Seconds (22.3-36.8)
[2024-06-17 17:04] LABS: Alanine Aminotransferase 64 U/L (6-50); Albumin Level 4.4 g/dL (3.5-5.1); Alkaline Phosphatase 106 U/L (38-126); Anion Gap 13 mmol/L (4-12); Aspartate Amino Transferase 70 U/L (17-59); Bilirubin,Total 0.7 mg/dL (0.2-1.3); Blood Urea Nitrogen 13 mg/dL (9-20); Calcium 9.8 mg/dL (8.4-10.2); Carbon Dioxide 26 mmol/L (22-30); Chloride 98 mmol/L (98-107); Estimated Glomerular Filt Rate > 60; Glucose 90 mg/dL (65-110); Potassium 4.1 mmol/L (3.4-5.0); Sodium 137 mmol/L (137-145)
--- OUTSIDE RECORDS SUMMARY | 2024-06-17 17:35 | XMS_ITS | CONTINUITY OF CARE DOCUMENT ---
Author Name aleks meccaashlie Address Unknown Organization [facility] Address [address] [place] [address] [address] [place] [address] Phone [phone] Care Team Providers Care Medical Office Coordinator Name Role Phone Sarwat KIRAN, Favio Unavailable PATRICK KIRAN, CAROLYNE Unavailable PATRICK KIRAN, CAROLYNE Unavailable PROBLEMS Condition Status Date Provider Notes Screening active Favio Fam MD C O P D active Favio Fam MD Dyspnea on exertion active Favio Fam MD HTN borderline active Favio Fam MD Tobacco abuse active Favio Fam MD Abnormal electrocardiogram active Favio stokes MD Pulmonary HTN secondary active Thalia blake [facility] Date Type Provider Location Encounter Diag nosis - In-person encounter Office Visit Favio Fam MD [facility] Pul[facility] HTN secondary - In-person encounter Office Visit Favio Fam MD [facility] - In-person encounter Office Visit Favio Fam MD [facility] ScreeningC O P DDyspnea on exertionHTN borderlineTobacco abuseAbnormal electrocardiogram VITAL SIGNS Date Observation Value Provider Body Mass Index (Ratio) 18.31 kg/m2 Rene Fam MD blood pressure, diastolic 84 mm[Hg] Li nkLogic blood pressure, systolic 130 mm[Hg] Jeri Jacobogic blood pressure, diastolic 84 mm[Hg] Geraldine gonzalez Rushellie blood pressure, systolic 130 mm[Hg] [facility] pulse [facility] 95 /min Suzanne Mccollum oxygen saturation, oximetry 89 % Suzanne Rushellie weight E&M 124 [lb_av] [facility] height E&M 69 [in_i] [facility] Body Mass Index (Ratio) 17.28 kg/m2 Rene Fam MD blood pressure, diastolic 98 mm[Hg] Ca therine [place] blood pressure, systolic 167 mm[Hg] Cat herine Linden oxygen saturation, oximetry 97 % Tiffany [place] pulse rate 73 /min Tiffany Linden weight E&M 117 [lb_av] Tiffany [place] respiratory rate E&M 18 /min Catheri ne [place] height E&M 69 [in_i] Tiffany [place] Body Mass Index (Ratio) 17.72 kg/m2 Rene Fam MD blood pressure, diastolic 80 mm[Hg] Janie Armas blood pressure, systolic 155 mm[Hg] Jeri Jacobogbruce blood pressure, diastolic 80 mm[Hg] Fiordaliza Parisi blood pressure, systolic 155 mm[Hg] Teresa Parisi oxygen saturation, oximetry 95 % Delon Parisi respiratory rate E&M 18 /min Lopez Parisi pulse rate 85 /min Delon kebede blood pressure, cuff size regular Fiordaliza Parisi weight E&M 120 [lb_av] Delon Camden delio height E&M 69 [in_i] Delon Hannah son RESULTS Date Observation Value Provider Reference Range Interpretat ion Location NT-pro BNP 110 LinkLogic <125 Normal [place] [facility] [address] [place] [address] Ian Goel MD HISTORY OF MEDICATION USE Medication Status Instructions Dates Provider Indications Com ments Trelegy Ellipta 100-62.5-25 mcg blister with device active Suzanne Mccollum SOCIAL HISTORY Date Observation Value Provider Underweight yes Favio Spence D drug use no Thalia [place] [facility] alcohol use, average drinks per day 4+ Thalia [place] [facility] alcohol use, type beer Thalia [place] [facility] alcohol use yes Thalia [place] [facility] passive cigarette sm albin exposure no Thalia [place] [facility] number of years as a smoker 50 a Thalia [place] [facility] smoking history, tot al pack/day 1 1 1/2 Thalia [place] [facility] cigarette use yes Thalia [place] [facility] smoking status Current every day smoker S betty [facility] Underweight yes Favio Spence D social history E&M Marital Statu s: C hildren: 2 O ccupation: Retired Paez Smoking History: P atient currently smokes every day. Favio Fam MD Underweight yes Favio Spence D passive cigarette sm labin exposure no Favio Fam MD social history reviewed E&M revi ewed - no changes required Favio Fam MD social history E&M Marital Statu s: C lurdesdren: 2 O ccupation: Retired Paez Smoking History: P atient currently smokes every day. Favio Fam MD drug use no Delon kebede alcohol use, average drinks per day 4+ Delon Parisi alcohol use, type beer Delon Parisi alcohol use yes Delon Hannah son number of years as a smoker 50 a Delon Parisi smoking history, tot al pack/day 1 1 05/20 Delon Parisi cigarette use yes Delon epps smoking status Current every day smoker L Ralph Parisi FAMILY HISTORY Family Member Condition First Degree Blood Relative No Known Fam mary History INSURANCE PROVIDERS Payer name Policy type / Coverage type [place] [employer] party ID [employer] [facility] ADVANTAGE PLAN 2 (HMO-POS) Medicare [id number] TREATMENT PLAN Date Name Performer [id number],S, Favio reynolds MD [id number],S,P FTs show severe obstructive disease with good response to inhaler Favio Fam MD [id number],S, Favio reynolds MD [id number],S,BP normal at home Favio Fam MD [id number],N, Favio reynolds MD [id number],S, Favio reynolds MD [id number],S, Favio reynolds MD [id number],N, Favio reynolds MD Cardiology:Check echo and pBNP. Thalia Mesa NP Cardiology:Will monitor BPs at h ome Thalia Mesa NP Cardiology:Per pulmonary MD Braxton Mesa NP Cardiology Favio Fam MD Cardiology:PFTs show severe obstructive disease with good response to inhaler Favio Fam MD Cardiology Favio Fam MD Cardiology:BP normal at home Vinay Fam MD Cardiology Favio Fam MD Cardiology Favio Fam MD Cardiology Favio Fam MD Cardiology Favio Fam MD Date Name Complete Echo PROBNP, N TERMINAL Complete Echo Stress Exercise Card iolite DLCO - 27728 FRC - 96322 FVC - 68320 HISTORY OF PROCEDURES Procedure Date Procedure Name Provider Procedure Notes S tatus EKG Favio Fam MD complete d Spirometry Favio Fam MD complete d FVC / MVV with bronchodilator - 70849 Favio Fam MD completed BLOOD COUNT HEMOGLOBIN Favio Fam MD completed FRC - 86865 Favio Fam MD complet ed SpO2 w/o 6min walk/titration Favio Fam MD completed SVC - 86421 Favio Fam MD complet ed DLCO - 06191 Favio Fam MD comple shena EKG Favio Fam MD complete d
--- OUTSIDE RECORDS SUMMARY | 2024-06-17 17:36 | XMS_ITS | Data Portability ---
Author Organization [facility], Main Office Address [address] [place] [address] Assessment No assessment recorded. Plan of Treatment Reminders Order Date Submit Date Provider Last Modified By Organization Details Last Modified Time Details Appointments None recorded . Lab CBC w/ auto diff 023 11/13/19 23 [facility], [place], [address], 3 15:14:33 CMP, serum or plasma 023 11/13/19 23 [facility], [place], [address], 3 15:14:32 T4, free, serum 023 11/13/19 23 [facility], [place], [address], 3 15:14:34 TSH, serum or plasma 023 11/13/19 23 [facility], [place], [address], 3 15:14:35 PSA, serum or plasma 023 11/13/19 23 [facility], [place], [address], 3 15:14:35 lipid panel, serum 024 01/01/20 24 [facility], [place], [address], 4 07:44:47 CMP, serum or plasma 024 01/01/20 24 [facility], [address], [place], [address], 4 07:44:47 CBC w/ auto diff 024 01/01/20 24 [facility], [address], [place], [address], 4 07:44:48 PSA, serum or plasma 024 01/01/20 24 [facility], [address], [place], [address], 4 07:44:48 Referral None recorded . Procedures None recorded . Surgeries None recorded . Imaging None recorded . Medication Orders None recorded . Patient TargetsNo targets recorded. Patient Instructions Encounter Date Encounter Id Patient Instructions Last Modified By Organization Details Last Modified Time 11/12/2022 [id number] Follow-up pulmon bonny emphysema -prostatic hypertrophy -colon [...] lipid and PSA. Follow-up in six months [email or web address] Not available 11/12/2022 12:22:34 07/04/2023 [id number] dementia rating scale-2* [email or web address] Not available 07/04/2023 11:29:21 alcohol misuse* [email or web address] Not available 07/04/2023 11:29:21 depression screening* [email or web address] Not available 07/04/2023 11:29:21 multi-dimensiona l health assessment questionnaire* Not available 07/04/2023 11:29:21 Personalized a lth [...] I have no recommendations Depression Screening: Negative [email or web address] Not available 07/04/2023 11:02:25 [facility] risk assessment stable. Follow-up for [...] voice recognition software. Occasional wrong-word or ? ncjqt-x-[id number]? substitutions may have occurred due to the inherent limitations of voice recognition software. Read the chart carefully and recognize, using context, where substitutions have occurred. Set up for pulmonary evaluation because of severe emphysema. Keep Appt: Fri 10:30 AM Michelle [email or web address] Not available 07/04/2023 11:29:04 01/01/2024 [id number] Personalized Hea lth Plan and Screening Recommendations [...] Eye Disease Screening: Dementia Risk: Depression Screening: [email or web address] Not available 01/01/2024 11:20:52 Follow-up for CO [...] voice recognition software. Occasional wrong-word or ? vpccg-o-aiuj? substitutions may have occurred due to the inherent limitations of voice recognition software. Read the chart carefully and recognize, using context, where substitutions have occurred. [email or web address] Not available 01/01/2024 12:06:42 Reason for Referral [...] ed total PSA ([facility]). Jaclkyn rison of seria l PSA resul ts [...] not be inter prete d as absol nooksack evide nce of the prese nce or absen ce of disea se. Not Available [address], [address], 11/16/2021 04:04:36 11/16/19 22 11/16/2021 VITAM IN B12 vitamin B12 497 pg/mL 200-11 00 normal Not Available [address], [address], 11/16/2021 04:04:35 11/16/19 22 11/16/2021 CBC (INCL UDES DIFF/ PLT) white blood cell count 6.0 thous and/u L 3.8-10 .8 normal Not Available [address], [address], 11/16/2021 04:04:35 11/16/19 22 11/16/2021 CBC (INCL UDES DIFF/ PLT) red blood cell count 4.94 trisha on/uL 4.20-5 .80 normal Not Available [address], [address], 11/16/2021 04:04:35 11/16/19 22 11/16/2021 CBC (INCL UDES DIFF/ PLT) hemoglobin 17.0 g/dL 13.2-1 7.1 normal Not Available [address], [address], 11/16/2021 04:04:35 11/16/19 22 11/16/2021 CBC (INCL UDES DIFF/ PLT) hematocrit 49.2 % 38.5-5 0.0 normal Not Available [facility] [address], [address], 11/16/2021 04:04:35 11/16/19 22 11/16/2021 CBC (INCL UDES DIFF/ PLT) MCV 99.6 fL 80.0-1 00.0 normal Not Available [address], [address], 11/16/2021 04:04:35 11/16/19 22 11/16/2021 CBC (INCL UDES DIFF/ PLT) MCH 34.4 pg 27.0-3 3.0 high Not Available [facility] [address], [address], 11/16/2021 04:04:35 11/16/19 22 11/16/2021 CBC (INCL UDES DIFF/ PLT) MCHC 34.6 g/dL 32.0-3 6.0 normal Not Available [address], [address], 11/16/2021 04:04:35 11/16/19 22 11/16/2021 CBC (INCL UDES DIFF/ PLT) RDW 12.5 % 11.0-1 5.0 normal Not Available [address], [address], 11/16/2021 04:04:35 11/16/19 22 11/16/2021 CBC (INCL UDES DIFF/ PLT) platelet count 234 thous and/u L 140-40 0 normal Not Available [address], [address], 11/16/2021 04:04:35 11/16/19 22 11/16/2021 CBC (INCL UDES DIFF/ PLT) MPV 10.5 fL 7.5-12 .5 normal Not Available [address], [address], 11/16/2021 04:04:35 11/16/19 22 11/16/2021 CBC (INCL UDES DIFF/ PLT) absolute neutrophils 3606 cells /uL 1500-7 800 normal Not Available [address], [address], 11/16/2021 04:04:35 11/16/19 22 11/16/2021 CBC (INCL UDES DIFF/ PLT) absolute lymphocytes 1602 cells /uL 850-39 00 normal Not Available [address], [address], 11/16/2021 04:04:35 11/16/19 22 11/16/2021 CBC (INCL UDES DIFF/ PLT) absolute monocytes 672 cells /uL 200-95 0 normal Not Available [address], [address], 11/16/2021 04:04:35 11/16/19 22 11/16/2021 CBC (INCL UDES DIFF/ PLT) eosinophils 1.3 % normal Not Available [address], [address], 11/16/2021 04:04:35 11/16/19 22 11/16/2021 CBC (INCL UDES DIFF/ PLT) absolute eosinophils 78 cells /uL 15-500 normal Not Available [address], [address], 11/16/2021 04:04:35 11/16/19 22 11/16/2021 CBC (INCL UDES DIFF/ PLT) absolute basophils 42 cells /uL 0-200 normal Not Available [facility] [address], [address], 11/16/2021 04:04:35 11/16/19 22 11/16/2021 CBC (INCL UDES DIFF/ PLT) neutrophils 60.1 % normal Not Available [address], [address], 11/16/2021 04:04:35 11/16/19 22 11/16/2021 CBC (INCL UDES DIFF/ PLT) lymphocytes 26.7 % normal Not Available [address], [address], 11/16/2021 04:04:35 11/16/19 22 11/16/2021 CBC (INCL UDES DIFF/ PLT) monocytes 11.2 % normal Not Available [facility] [address], [address], 11/16/2021 04:04:35 11/16/19 22 11/16/2021 CBC (INCL UDES DIFF/ PLT) basophils 0.7 % normal Not Available [address], [address], 11/16/2021 04:04:35 11/16/19 22 11/16/2021 SED RATE BY MODIF IED WESTE RGREN sed rate by modified westkeyonnaren 2 mm/h < or = 20 normal Not Available [address], [address], 11/16/2021 04:04:34 11/16/19 22 11/16/2021 COMPR EHENS JUAN PABLO METAB OLIC PANEL , PLASM A glucose 89 mg/dL 65-99 normal Fasti ng refer ence inter quintin Not Available [address], [address], 11/16/2021 04:04:34 11/16/19 22 11/16/2021 COMPR EHENS JUAN PABLO METAB OLIC PANEL , PLASM A urea nitrogen (BUN) 6 mg/dL 7-25 low Not Available [address], [address], 11/16/2021 04:04:34 11/16/19 22 11/16/2021 COMPR EHENS JUAN PABLO METAB OLIC PANEL , PLASM A creatinine 0.71 mg/dL 0.70-1 .25 normal For patie nts >49 years of age, the refer ence limit for Creat inine is appro ximat jared 13% highe r for peopl e ident ified as Afric an-Am nancy n. Not Available [address], [address], 11/16/2021 04:04:34 11/16/19 22 11/16/2021 COMPR EHENS JUAN PABLO METAB OLIC PANEL , PLASM A eGFR non-afr. sammarinese 96 mL/mi n/1.7 3m2 > or = 60 normal Not Available [facility] [address], [address], 11/16/2021 04:04:34 11/16/19 22 11/16/2021 COMPR EHENS JUAN PABLO METAB OLIC PANEL , PLASM A eGFR 111 mL/mi n/1.7 3m2 > or = 60 normal Not Available [address], [address], 11/16/2021 04:04:34 11/16/19 22 11/16/2021 COMPR EHENS JUAN PABLO METAB OLIC PANEL , PLASM A BUN/creatini ne ratio 8 (calc ) 6-22 normal Not Available [address], [address], 11/16/2021 04:04:34 11/16/19 22 11/16/2021 COMPR EHENS JUAN PABLO METAB OLIC PANEL , PLASM A sodium 139 mmol/ L 135-14 6 normal Not Available [address], [address], 11/16/2021 04:04:34 11/16/19 22 11/16/2021 COMPR EHENS JUAN PABLO METAB OLIC PANEL , PLASM A potassium 4.6 mmol/ L 3.4-4. 8 normal Not Available [facility] [address], [address], 11/16/2021 04:04:34 11/16/19 22 11/16/2021 COMPR EHENS JUAN PABLO METAB OLIC PANEL , PLASM A chloride 98 mmol/ L 98-110 normal Not Available [address], [address], 11/16/2021 04:04:34 11/16/19 22 11/16/2021 COMPR EHENS JUAN PABLO METAB OLIC PANEL , PLASM A carbon dioxide 30 mmol/ L 20-32 normal Not Available [address], [address], 11/16/2021 04:04:34 11/16/19 22 11/16/2021 COMPR EHENS JUAN PABLO METAB OLIC PANEL , PLASM A calcium 9.6 mg/dL 8.6-10 .3 normal Not Available [address], [address], 11/16/2021 04:04:34 11/16/19 22 11/16/2021 COMPR EHENS JUAN PABLO METAB OLIC PANEL , PLASM A protein, total 7.0 g/dL 6.4-8. 4 normal Not Available [address], [address], 11/16/2021 04:04:34 11/16/19 22 11/16/2021 COMPR EHENS JUAN PABLO METAB OLIC PANEL , PLASM A albumin 4.4 g/dL 3.6-5. 1 normal Not Available [address], [address], 11/16/2021 04:04:34 11/16/19 22 11/16/2021 COMPR EHENS JUAN PABLO METAB OLIC PANEL , PLASM A globulin 2.6 g/dL_ (calc ) 2.2-4. 0 normal Not Available [address], [address], 11/16/2021 04:04:34 11/16/19 22 11/16/2021 COMPR EHENS JUAN PABLO METAB OLIC PANEL , PLASM A albumin/glob ulin ratio 1.7 (calc ) 0.9-2. 3 normal Not Available [address], [address], 11/16/2021 04:04:34 11/16/19 22 11/16/2021 COMPR EHENS JUAN PABLO METAB OLIC PANEL , PLASM A bilirubin, total 0.5 mg/dL 0.2-1. 2 normal Not Available [address], [address], 11/16/2021 04:04:34 11/16/19 22 11/16/2021 COMPR EHENS JUAN PABLO METAB OLIC PANEL , PLASM A alkaline phosphatase 97 U/L 35-144 normal Not Available [address], [address], 11/16/2021 04:04:34 11/16/19 22 11/16/2021 COMPR EHENS JUAN PABLO METAB OLIC PANEL , PLASM A AST 78 U/L 10-35 high Not Available [address], [address], 11/16/2021 04:04:34 11/16/19 22 11/16/2021 COMPR EHENS JUAN PABLO METAB OLIC PANEL , PLASM A ALT 76 U/L 9-46 high Not Available [address], [address], 11/16/2021 04:04:34 11/16/19 22 11/16/2021 TSH+F REE T4 TSH 1.60 mIU/L 0.40-4 .50 normal Not Available [address], [address], 11/16/2021 04:04:33 11/16/19 22 11/16/2021 TSH+F REE T4 T4, free 1.1 NG/dL 0.8-1. 8 normal Not Available [address], [address], 11/16/2021 04:04:33 11/16/19 22 11/16/2021 LIPID PANEL [...] 310(1 9): 2061- 2068 (http ://ed ucati on.[employer]. com/f aq/FA Q164) Not Available [address], [address], 11/16/2021 04:04:32 11/16/19 22 11/16/2021 LIPID PANEL , STAND LISSET cholesterol, total 165 mg/dL <200 normal Not Available [address], [address], 11/16/2021 04:04:32 11/16/19 22 11/16/2021 LIPID PANEL , STAND LISSET HDL cholesterol 88 mg/dL > or = 40 normal Not Available [address], [address], 11/16/2021 04:04:32 11/16/19 22 11/16/2021 LIPID PANEL , STAND LISSET triglyceride s 93 mg/dL <150 normal Not Available [address], [address], 11/16/2021 04:04:32 11/16/19 22 11/16/2021 LIPID PANEL , STAND LISSET chol/HDLC ratio 1.9 (calc ) <5.0 normal Not Available [facility] [address] [address] [address], [place], [address], 11/16/2021 04:04:32 11/16/19 22 11/16/2021 LIPID PANEL , STAND LISSET non HDL cholesterol 77 mg/dL _(ashley c) <130 normal For patie nts with diabe marguerite plus 1 major ASCVD risk facto r, treat ing to a non-H DL-C goal of <100 mg/dL (LDL- C of <70 mg/dL ) is consi dered a thera peuti c optio n. Not Available [facility] [address] [address] [address], [place], [address], 11/16/2021 04:04:32 11/29/19 22 11/29/2021 HEPAT ITIS [...] a test for HCV RNA (test code 45693 ) is sugge sted. For addit ional infor matio n pleas e refer to http: //[employer] charlotte n.que stdia gnost ics.c om/fa q/FAQ 22v1 (This link is being provi ded for infor chaim nal/ educa franny l purpo ses only. ) Not Available [facility] [address] [address], [place], [address], 11/29/2021 10:53:24 11/29/19 22 11/29/2021 HEPAT ITIS PANEL , ACUTE W/REF OLGA TO CONFI RMATI ON hepatitis A IgM non-re active non-re active normal For addit ional infor matio n, pleas e refer to http: //[employer] catkimmy n.que stdia gnost ics.c om/fa q/FAQ 202 (This link is being provi ded for infor matio nal/ rahul jacksono ses only. ) Not Available [address] [address] [place], [address], 11/29/2021 10:53:24 11/29/19 22 11/29/2021 HEPAT ITIS PANEL , ACUTE W/REF OLGA TO CONFI RMATI ON hepatitis B surface antigen non-re active non-re active normal Not Available [address] [address] [place], [address], 11/29/2021 10:53:24 11/29/19 22 11/29/2021 HEPAT ITIS PANEL , ACUTE W/REF OLGA TO CONFI RMATI ON hepatitis B core antibody (IgM) non-re active non-re active normal Not Available [address] [address] [place], [address], 11/29/2021 10:53:24 11/29/19 22 11/29/2021 HEPAT ITIS PANEL , ACUTE W/REF OLGA TO CONFI RMATI ON hepatitis C antibody non-re active non-re active normal Not Available [address] [address] [place], [address], 11/29/2021 10:53:24 11/16/19 23 11/16/2022 LIPID PANEL , STAND LISSET cholesterol, total 135 mg/dL <200 normal Not Available [address] [address] [place], [address], 11/16/2022 15:14:31 11/16/19 23 11/16/2022 LIPID PANEL , STAND LISSET HDL cholesterol 65 mg/dL > or = 40 normal Not Available [address], [address], 11/16/2022 15:14:31 11/16/19 23 11/16/2022 LIPID PANEL , STAND LISSET triglyceride s 65 mg/dL <150 normal Not Available [address] [place], [address], 11/16/2022 15:14:31 11/16/19 23 11/16/2022 LIPID PANEL [...] 310(1 9): 2061- 2068 (http ://ed ucati on.[employer]. Reviv[employer]/f aq/FA Q164) Not Available [facility] [address] [place], [address], 11/16/2022 15:14:31 11/16/19 23 11/16/2022 LIPID PANEL , STAND LISSET chol/HDLC ratio 2.1 (calc ) <5.0 normal Not Available [facility] [address] [place], [address], 11/16/2022 15:14:31 11/16/19 23 11/16/2022 LIPID PANEL , STAND LISSET non HDL cholesterol 70 mg/dL _(ashley c) <130 normal For patie nts with diabe marguerite plus 1 major ASCVD risk facto r, treat ing to a non-H DL-C goal of <100 mg/dL (LDL- C of <70 mg/dL ) is maurisio cohen c optio n. Not Available [facility] [address] [place], [address], 11/16/2022 15:14:31 11/16/19 23 11/16/2022 COMPR EHENS JUAN PABLO METAB OLIC PANEL glucose 99 mg/dL 65-99 normal Fasti ng refer ence inter quintin Not Available [facility] [address] [address] [place], [address], 11/16/2022 15:14:32 11/16/19 23 11/16/2022 COMPR EHENS JUAN PABLO METAB OLIC PANEL urea nitrogen (BUN) 7 mg/dL 7-25 normal Not Available [facility] [address] [address] [place], [address], 11/16/2022 15:14:32 11/16/19 23 11/16/2022 COMPR EHENS JUAN PABLO METAB OLIC PANEL creatinine 0.66 mg/dL 0.70-1 .28 low Not Available [address] [address] [place], [address], 11/16/2022 15:14:32 11/16/19 23 11/16/2022 COMPR EHENS [...] kdoqi /gfr% 5Fcal culat or Not Available [address] [address] [place], [address], 11/16/2022 15:14:32 11/16/19 23 11/16/2022 COMPR EHENS JUAN PABLO METAB OLIC PANEL BUN/creatini ne ratio 11 (calc ) 6-22 normal Not Available [facility] [address] [address] [place], [address], 11/16/2022 15:14:32 11/16/19 23 11/16/2022 COMPR EHENS JUAN PABLO METAB OLIC PANEL sodium 136 mmol/ L 135-14 6 normal Not Available [address] [address] [place], [address], 11/16/2022 15:14:32 11/16/19 23 11/16/2022 COMPR EHENS JUAN PABLO METAB OLIC PANEL potassium 5.2 mmol/ L 3.5-5. 3 normal Not Available [address], [address], 11/16/2022 15:14:32 11/16/19 23 11/16/2022 COMPR EHENS JUAN PABLO METAB OLIC PANEL chloride 95 mmol/ L 98-110 low Not Available [address], [address], 11/16/2022 15:14:32 11/16/19 23 11/16/2022 COMPR EHENS JUAN PABLO METAB OLIC PANEL carbon dioxide 33 mmol/ L 20-32 high Not Available [address], [address], 11/16/2022 15:14:32 11/16/19 23 11/16/2022 COMPR EHENS JUAN PABLO METAB OLIC PANEL calcium 9.5 mg/dL 8.6-10 .3 normal Not Available [address], [address], 11/16/2022 15:14:32 11/16/19 23 11/16/2022 COMPR EHENS JUAN PABLO METAB OLIC PANEL protein, total 6.5 g/dL 6.1-8. 1 normal Not Available [address], [address], 11/16/2022 15:14:32 11/16/19 23 11/16/2022 COMPR EHENS JUAN PABLO METAB OLIC PANEL albumin 4.0 g/dL 3.6-5. 1 normal Not Available [address], [address], 11/16/2022 15:14:32 11/16/19 23 11/16/2022 COMPR EHENS JUAN PABLO METAB OLIC PANEL globulin 2.5 g/dL_ (calc ) 1.9-3. 7 normal Not Available [address], [address], 11/16/2022 15:14:32 11/16/19 23 11/16/2022 COMPR EHENS JUAN PABLO METAB OLIC PANEL albumin/glob ulin ratio 1.6 (calc ) 1.0-2. 5 normal Not Available [address], [address], 11/16/2022 15:14:32 11/16/19 23 11/16/2022 COMPR EHENS JUAN PABLO METAB OLIC PANEL bilirubin, total 0.7 mg/dL 0.2-1. 2 normal Not Available [address], [address], 11/16/2022 15:14:32 11/16/19 23 11/16/2022 COMPR EHENS JUAN PABLO METAB OLIC PANEL alkaline phosphatase 95 U/L 35-144 normal Not Available [address], [address], 11/16/2022 15:14:32 11/16/19 23 11/16/2022 COMPR EHENS JUAN PABLO METAB OLIC PANEL AST 70 U/L 10-35 high Not Available [address], [address], 11/16/2022 15:14:32 11/16/19 23 11/16/2022 COMPR EHENS JUAN PABLO METAB OLIC PANEL ALT 66 U/L 9-46 high Not Available [address], [address], 11/16/2022 15:14:32 11/16/19 23 11/16/2022 CBC (INCL UDES DIFF/ PLT) white blood cell count 6.3 thous and/u L 3.8-10 .8 normal Not Available [address], [address], 11/16/2022 15:14:33 11/16/19 23 11/16/2022 CBC (INCL UDES DIFF/ PLT) red blood cell count 4.66 trisha on/uL 4.20-5 .80 normal Not Available [address], [address], 11/16/2022 15:14:33 11/16/19 23 11/16/2022 CBC (INCL UDES DIFF/ PLT) hemoglobin 15.6 g/dL 13.2-1 7.1 normal Not Available [address], [address], 11/16/2022 15:14:33 11/16/19 23 11/16/2022 CBC (INCL UDES DIFF/ PLT) hematocrit 46.7 % 38.5-5 0.0 normal Not Available [address], [address], 11/16/2022 15:14:33 11/16/19 23 11/16/2022 CBC (INCL UDES DIFF/ PLT) MCV 100.2 fL 80.0-1 00.0 high Not Available [address], [address], 11/16/2022 15:14:33 11/16/19 23 11/16/2022 CBC (INCL UDES DIFF/ PLT) MCH 33.5 pg 27.0-3 3.0 high Not Available [address], [address], 11/16/2022 15:14:33 11/16/19 23 11/16/2022 CBC (INCL UDES DIFF/ PLT) MCHC 33.4 g/dL 32.0-3 6.0 normal Not Available [address], [address], 11/16/2022 15:14:33 11/16/19 23 11/16/2022 CBC (INCL UDES DIFF/ PLT) RDW 12.5 % 11.0-1 5.0 normal Not Available [address], [address], 11/16/2022 15:14:33 11/16/19 23 11/16/2022 CBC (INCL UDES DIFF/ PLT) platelet count 259 thous and/u L 140-40 0 normal Not Available [address], [address], 11/16/2022 15:14:33 11/16/19 23 11/16/2022 CBC (INCL UDES DIFF/ PLT) MPV 9.7 fL 7.5-12 .5 normal Not Available [address], [address], 11/16/2022 15:14:33 11/16/19 23 11/16/2022 CBC (INCL UDES DIFF/ PLT) absolute neutrophils 4498 cells /uL 1500-7 800 normal Not Available [address], [address], 11/16/2022 15:14:33 11/16/19 23 11/16/2022 CBC (INCL UDES DIFF/ PLT) absolute lymphocytes 1172 cells /uL 850-39 00 normal Not Available [address], [address], 11/16/2022 15:14:33 11/16/19 23 11/16/2022 CBC (INCL UDES DIFF/ PLT) absolute monocytes 561 cells /uL 200-95 0 normal Not Available [address], [address], 11/16/2022 15:14:33 11/16/19 23 11/16/2022 CBC (INCL UDES DIFF/ PLT) absolute eosinophils 32 cells /uL 15-500 normal Not Available [address], [address], 11/16/2022 15:14:33 11/16/19 23 11/16/2022 CBC (INCL UDES DIFF/ PLT) absolute basophils 38 cells /uL 0-200 normal Not Available [address], [address], 11/16/2022 15:14:33 11/16/19 23 11/16/2022 CBC (INCL UDES DIFF/ PLT) neutrophils 71.4 % normal Not Available [facility] [address], [address], 11/16/2022 15:14:33 11/16/19 23 11/16/2022 CBC (INCL UDES DIFF/ PLT) lymphocytes 18.6 % normal Not Available [facility] [address], [address], 11/16/2022 15:14:33 11/16/19 23 11/16/2022 CBC (INCL UDES DIFF/ PLT) monocytes 8.9 % normal Not Available [facility] [address], [address], 11/16/2022 15:14:33 11/16/19 23 11/16/2022 CBC (INCL UDES DIFF/ PLT) eosinophils 0.5 % normal Not Available [facility] [address], [address], 11/16/2022 15:14:33 11/16/19 23 11/16/2022 CBC (INCL UDES DIFF/ PLT) basophils 0.6 % normal Not Available [facility] [address], [address], 11/16/2022 15:14:33 11/16/19 23 11/16/2022 T4, FREE T4, free 1.1 NG/dL 0.8-1. 8 normal Not Available [address], [address], 11/16/2022 15:14:34 11/16/19 23 11/16/2022 TSH TSH 1.01 mIU/L 0.40-4 .50 normal Not Available [address], [address], 11/16/2022 15:14:34 11/16/19 23 11/16/2022 PSA, TOTAL [...] This test was perfo rmed using the [employer] chemi lumin escen t metho d. Value s obtai vadim from diffe rent assay metho ds canno t be used inter sampson eably . PSA level s, regar dless of value , shoul d not be inter prete d as absol nooksack evide nce of the prese nce or absen ce of disea se. Not Available [address] [place], [address], 11/16/2022 15:14:35 12/27/1912/27/2022 COMPR EHENS JUAN PABLO METAB OLIC PANEL glucose 99 mg/dL 65-99 normal Fasti ng refer ence inter quintin Not Available [facility] [address] [address] [place], [address], 12/27/2022 03:09:14 12/27/19 23 12/27/2022 COMPR EHENS JUAN PABLO METAB OLIC PANEL urea nitrogen (BUN) 9 mg/dL 7-25 normal Not Available [facility] [address] [place], [address], 12/27/2022 03:09:14 12/27/19 23 12/27/2022 COMPR EHENS JUAN PABLO METAB OLIC PANEL creatinine 0.68 mg/dL 0.70-1 .28 low Not Available [address], [address], 12/27/2022 03:09:14 12/27/1912/27/2022 COMPR EHENS JUAN PABLO METAB OLIC PANEL eGFR 100 mL/mi n/1.7 3m2 > or = 60 normal Not Available [address], [address], 12/27/2022 03:09:14 12/27/1912/27/2022 COMPR EHENS JUAN PABLO METAB OLIC PANEL BUN/creatini ne ratio 13 (calc ) 6-22 normal Not Available [address], [address], 12/27/2022 03:09:14 12/27/1912/27/2022 COMPR EHENS JUAN PABLO METAB OLIC PANEL sodium 136 mmol/ L 135-14 6 normal Not Available [address], [address], 12/27/2022 03:09:14 12/27/19 23 12/27/2022 COMPR EHENS JUAN PABLO METAB OLIC PANEL potassium 4.6 mmol/ L 3.5-5. 3 normal Not Available [address], [address], 12/27/2022 03:09:14 12/27/1912/27/2022 COMPR EHENS JUAN PABLO METAB OLIC PANEL chloride 96 mmol/ L 98-110 low Not Available [address], [address], 12/27/2022 03:09:14 12/27/1912/27/2022 COMPR EHENS JUAN PABLO METAB OLIC PANEL carbon dioxide 34 mmol/ L 20-32 high Not Available [address], [address], 12/27/2022 03:09:14 12/27/19 23 12/27/2022 COMPR EHENS JUAN PABLO METAB OLIC PANEL calcium 9.5 mg/dL 8.6-10 .3 normal Not Available [address], [address], 12/27/2022 03:09:14 12/27/1912/27/2022 COMPR EHENS JUAN PABLO METAB OLIC PANEL protein, total 6.6 g/dL 6.1-8. 1 normal Not Available [address], [address], 12/27/2022 03:09:14 12/27/1912/27/2022 COMPR EHENS JUAN PABLO METAB OLIC PANEL albumin 4.2 g/dL 3.6-5. 1 normal Not Available [address], [address], 12/27/2022 03:09:14 12/27/19 23 12/27/2022 COMPR EHENS JUAN PABLO METAB OLIC PANEL globulin 2.4 g/dL_ (calc ) 1.9-3. 7 normal Not Available [address], [address], 12/27/2022 03:09:14 12/27/1912/27/2022 COMPR EHENS JUAN PABLO METAB OLIC PANEL albumin/glob ulin ratio 1.8 (calc ) 1.0-2. 5 normal Not Available [address], [address], 12/27/2022 03:09:14 12/27/1912/27/2022 COMPR EHENS JUAN PABLO METAB OLIC PANEL bilirubin, total 0.9 mg/dL 0.2-1. 2 normal Not Available [address], [address], 12/27/2022 03:09:14 12/27/19 23 12/27/2022 COMPR EHENS JUAN PABLO METAB OLIC PANEL alkaline phosphatase 89 U/L 35-144 normal Not Available [facility] [employer] [address], [address], 12/27/2022 03:09:14 12/27/19 23 12/27/2022 COMPR EHENS JUAN PABLO METAB OLIC PANEL AST 57 U/L 10-35 high Not Available [address], [address], 12/27/2022 03:09:14 12/27/19 23 12/27/2022 COMPR EHENS JUAN PABLO METAB OLIC PANEL ALT 54 U/L 9-46 high Not Available [address], [address], 12/27/2022 03:09:14 01/06/20 24 01/07/2024 LIPID PANEL , STAND LISSET cholesterol, total 149 mg/dL <200 normal Not Available [address], [address], 01/07/2024 07:44:47 01/06/20 24 01/07/2024 LIPID PANEL , STAND LISSET HDL cholesterol 85 mg/dL > or = 40 normal Not Available [address], [address], 01/07/2024 07:44:47 01/06/20 24 01/07/2024 LIPID PANEL , STAND LISSET triglyceride s 61 mg/dL <150 normal Not Available [address], [address], 01/07/2024 07:44:47 01/06/20 24 01/07/2024 LIPID PANEL , STAND LISSET LDL-choleste rol 50 mg/dL _(ashley c) normal Refer ence range : <100 Katrina able range <100 mg/dL for prima ry preve ntion ; <70 mg/dL for patie nts with CHD or diabe tic patie nts with > or = 2 CHD risk facto rs. LDL-C is now calcu lated using the [facility]ra [facility] kins miguelina reynolds, which is a valid ated novel tc schofield than the Fried yordy gomezat ion in the estim ation of LDL-C . Audra reynolds SS et al. JUN. 2013; 310(1 9): 2061- 2068 (http ://ed ucati on.Qu estBuildForges. com/f aq/FA Q164) Not Available [address] [address] [place], [address], 01/07/2024 07:44:47 01/06/20 24 01/07/2024 LIPID PANEL , STAND LISSET chol/HDLC ratio 1.8 (calc ) <5.0 normal Not Available [address], [address], 01/07/2024 07:44:47 01/06/20 24 01/07/2024 LIPID PANEL , STAND LISSET non HDL cholesterol 64 mg/dL _(ashley c) <130 normal For patie nts with diabe marguerite plus 1 major ASCVD risk facto r, treat ing to a non-H DL-C goal of <100 mg/dL (LDL- C of <70 mg/dL ) is consi kindra mortono n. Not Available [address] [address] [place], [address], 01/07/2024 07:44:47 01/06/20 24 01/07/2024 COMPR EHENS JUAN PABLO METAB OLIC PANEL glucose 87 mg/dL 65-99 normal Fasti ng refer ence inter quintin Not Available [address] [address] [place], [address], 01/07/2024 07:44:47 01/06/20 24 01/07/2024 COMPR EHENS JUAN PABLO METAB OLIC PANEL urea nitrogen (BUN) 12 mg/dL 7-25 normal Not Available [address], [address], 01/07/2024 07:44:47 01/06/20 24 01/07/2024 COMPR EHENS JUAN PABLO METAB OLIC PANEL creatinine 0.57 mg/dL 0.70-1 .28 low Not Available [address], [address], 01/07/2024 07:44:47 01/06/20 24 01/07/2024 COMPR EHENS JUAN PABLO METAB OLIC PANEL eGFR 105 mL/mi n/1.7 3m2 > or = 60 normal Not Available [address], [address], 01/07/2024 07:44:47 01/06/20 24 01/07/2024 COMPR EHENS JUAN PABLO METAB OLIC PANEL BUN/creatini ne ratio 21 (calc ) 6-22 normal Not Available [address], [address], 01/07/2024 07:44:47 01/06/20 24 01/07/2024 COMPR EHENS JUAN PABLO METAB OLIC PANEL sodium 139 mmol/ L 135-14 6 normal Not Available [address], [address], 01/07/2024 07:44:47 01/06/20 24 01/07/2024 COMPR EHENS JUAN PABLO METAB OLIC PANEL potassium 4.8 mmol/ L 3.5-5. 3 normal Not Available [address], [address], 01/07/2024 07:44:47 01/06/20 24 01/07/2024 COMPR EHENS JUAN PABLO METAB OLIC PANEL chloride 99 mmol/ L 98-110 normal Not Available [address], [address], 01/07/2024 07:44:47 01/06/20 24 01/07/2024 COMPR EHENS JUAN PABLO METAB OLIC PANEL carbon dioxide 32 mmol/ L 20-32 normal Not Available [address], [address], 01/07/2024 07:44:47 01/06/2001/07/2024 COMPR EHENS JUAN PABLO METAB OLIC PANEL calcium 9.5 mg/dL 8.6-10 .3 normal Not Available [address], [address], 01/07/2024 07:44:47 01/06/2001/07/2024 COMPR EHENS JUAN PABLO METAB OLIC PANEL protein, total 6.4 g/dL 6.1-8. 1 normal Not Available [address], [address], 01/07/2024 07:44:47 01/06/2001/07/2024 COMPR EHENS JUAN PABLO METAB OLIC PANEL albumin 4.1 g/dL 3.6-5. 1 normal Not Available [address], [address], 01/07/2024 07:44:47 01/06/20 24 01/07/2024 COMPR EHENS JUAN PABLO METAB OLIC PANEL globulin 2.3 g/dL_ (calc ) 1.9-3. 7 normal Not Available [address], [address], 01/07/2024 07:44:47 01/06/20 24 01/07/2024 COMPR EHENS JUAN PABLO METAB OLIC PANEL albumin/glob ulin ratio 1.8 (calc ) 1.0-2. 5 normal Not Available [address], [address], 01/07/2024 07:44:47 01/06/20 24 01/07/2024 COMPR EHENS JUAN PABLO METAB OLIC PANEL bilirubin, total 0.6 mg/dL 0.2-1. 2 normal Not Available [address], [address], 01/07/2024 07:44:47 01/06/20 24 01/07/2024 COMPR EHENS JUAN PABLO METAB OLIC PANEL alkaline phosphatase 104 U/L 35-144 normal Not Available [facility] [employer] [address], [address], 01/07/2024 07:44:47 01/06/20 24 01/07/2024 COMPR EHENS JUAN PABLO METAB OLIC PANEL AST 43 U/L 10-35 high Not Available [address], [address], 01/07/2024 07:44:47 01/06/20 24 01/07/2024 COMPR EHENS JUAN PABLO METAB OLIC PANEL ALT 36 U/L 9-46 normal Not Available [address], [address], 01/07/2024 07:44:47 01/06/20 24 01/07/2024 CBC (INCL UDES DIFF/ PLT) white blood cell count 6.5 thous and/u L 3.8-10 .8 normal Not Available [address], [address], 01/07/2024 07:44:48 01/06/20 24 01/07/2024 CBC (INCL UDES DIFF/ PLT) red blood cell count 4.27 trisha on/uL 4.20-5 .80 normal Not Available [address], [address], 01/07/2024 07:44:48 01/06/20 24 01/07/2024 CBC (INCL UDES DIFF/ PLT) hemoglobin 14.6 g/dL 13.2-1 7.1 normal Not Available [employer] [address], [address], 01/07/2024 07:44:48 01/06/20 24 01/07/2024 CBC (INCL UDES DIFF/ PLT) hematocrit 44.2 % 38.5-5 0.0 normal Not Available [address], [address], 01/07/2024 07:44:48 01/06/20 24 01/07/2024 CBC (INCL UDES DIFF/ PLT) MCV 103.5 fL 80.0-1 00.0 high Not Available [address], [address], 01/07/2024 07:44:48 01/06/2001/07/2024 CBC (INCL UDES DIFF/ PLT) MCH 34.2 pg 27.0-3 3.0 high Not Available [address], [address], 01/07/2024 07:44:48 01/06/20 24 01/07/2024 CBC (INCL UDES DIFF/ PLT) MCHC 33.0 g/dL 32.0-3 6.0 normal Not Available [address], [address], 01/07/2024 07:44:48 01/06/20 24 01/07/2024 CBC (INCL UDES DIFF/ PLT) RDW 12.2 % 11.0-1 5.0 normal Not Available [address], [address], 01/07/2024 07:44:48 01/06/20 24 01/07/2024 CBC (INCL UDES DIFF/ PLT) platelet count 258 thous and/u L 140-40 0 normal Not Available [address], [address], 01/07/2024 07:44:48 01/06/20 24 01/07/2024 CBC (INCL UDES DIFF/ PLT) MPV 11.5 fL 7.5-12 .5 normal Not Available [address], [address], 01/07/2024 07:44:48 01/06/20 24 01/07/2024 CBC (INCL UDES DIFF/ PLT) absolute neutrophils 4349 cells /uL 1500-7 800 normal Not Available [address], [address], 01/07/2024 07:44:48 01/06/20 24 01/07/2024 CBC (INCL UDES DIFF/ PLT) absolute lymphocytes 1391 cells /uL 850-39 00 normal Not Available [address], [address], 01/07/2024 07:44:48 01/06/20 24 01/07/2024 CBC (INCL UDES DIFF/ PLT) absolute monocytes 605 cells /uL 200-95 0 normal Not Available [address], [address], 01/07/2024 07:44:48 01/06/20 24 01/07/2024 CBC (INCL UDES DIFF/ PLT) absolute eosinophils 124 cells /uL 15-500 normal Not Available [address], [address], 01/07/2024 07:44:48 01/06/20 24 01/07/2024 CBC (INCL UDES DIFF/ PLT) absolute basophils 33 cells /uL 0-200 normal Not Available [employer] [address], [address], 01/07/2024 07:44:48 01/06/20 24 01/07/2024 CBC (INCL UDES DIFF/ PLT) neutrophils 66.9 % normal Not Available [address], [address], 01/07/2024 07:44:48 01/06/20 24 01/07/2024 CBC (INCL UDES DIFF/ PLT) lymphocytes 21.4 % normal Not Available [address] [place], [address], 01/07/2024 07:44:48 01/06/20 24 01/07/2024 CBC (INCL UDES DIFF/ PLT) monocytes 9.3 % normal Not Available [address] [place], [address], 01/07/2024 07:44:48 01/06/20 24 01/07/2024 CBC (INCL UDES DIFF/ PLT) eosinophils 1.9 % normal Not Available [employer] [address], [address], 01/07/2024 07:44:48 01/06/20 24 01/07/2024 CBC (INCL UDES DIFF/ PLT) basophils 0.5 % normal Not Available [address], [address], 01/07/2024 07:44:48 01/06/20 24 01/07/2024 PSA, TOTAL [...] not be inter prete d as absol nooksack evide nce of the prese nce or absen ce of disea se. Not Available [facility] [address], [address], 01/07/2024 07:44:48 09/26/19 22 09/25/2021 pharm acolo gic nucle ar stres s test No observ ation record ed. MIGRATION. [id number] [facility] [address], [place], [address], 07/17/2022 14:26:36 10/01/19 22 09/25/2021 , echoc ardio gram No observ ation record ed. MIGRATION. [id number] [facility] [address], [place], [address], 07/17/2022 14:26:36 11/02/19 22 11/01/2021 PFT, compl ete No observ ation record ed. MIGRATION. [id number] [facility] [address], [place], [address], 07/17/2022 14:26:36 06/12/19 23 LDCT, chest , for lung cance r scree stephane [facility] [place] [address] Patien t Name: GOLDEN BARKSDALE Access ion #: [id number] Sex: M : 1950 7 Locati [...] CT lung carcin jeancarlos screen ing examin [facility]. Axial images are recons tructe d in [...] t Name: GOLDEN BARKSDALE Access ion #: [id number] Sex: M : 1950 7 Exam [...] , see above. Page 2 of 3 [facility] Patilori t Name: GOLDEN BARKSDALE Access ion #: [id number] Sex: M : 1950 7 Exam [...] 9:41 AM (CT) Page 3 of 3 [id number].[id number] [facility] (Imaging) [address] [place], [address], 07/17/2022 14:26:36 12/07/19 23 US, abdom en, limit ed [facility] [address] [place] [address] Ck t Name: GOLDEN BARKSDALE Access ion #: [id number] Sex: M : 1950 6 Locati [...] The right kidney Page 1 of 2 [facility] Patien t Name: GOLDEN BARKSDALE W Access ion #: [id number] Sex: M : 1950 6 Exam [...] 12:20 PM (CT) Page [address] of [address] (Imaging) [address] [place], [address], 12/06/2022 13:56:43 07/04/19 24 LDCT, chest , for lung cance r scree stephane [facility] [address] [place] [address] Patilori t Name: GOLDEN BARKSDALE Access ion #: [id number] Sex: M : 1950 6 Dictat [...] emphys jerri. 0.8 cm nodule in the packer operator automatic omedia l left lower lobe. 0.4 cm nodule in the medial left upper lobe. Heart/ Vascul ar Struct ures: Shin ry and vascul ar calcif icatio ns. Lymph Nodes: No adenop athy Pleura : No pleura l effusi on or pneumo thorax Page 1 [facility] [address] [place] [address] Patien t Name: GOLDEN BARKSDALE Access ion #: [id number] Sex: M : 1950 6 Dictat [...] IMPRES MITCH: 0.8 cm nodule in the packer operator automatic omedia l left lower lobe. 0.4 cm nodule in the medial left upper lobe. Lung-R ADS Catego ry 3: 6-chary h follow -up with LDCT Electr onical ly Signed by: Kaz Bragg at 2023 09:45: 30 AM Page [address] (Imaging) [address] [place], [address], 07/04/2023 11:21:56 09/22/19 24 09/19/2023 PFT, compl ete No observ ation record ed. [address], [place], [address], 09/22/2023 12:28:29 09/24/19 24 09/19/2023 six minut e walk test* No observ ation record ed. [email or web address] [address] [facility], [place], [address], 09/25/2023 17:07:03 01/14/20 24 LDCT, chest , for lung cance r scree stephane [facility] [address] [facility], [place] [address] Patien t Name: GOLDEN BARKSDALE Access ion #: [id number] Sex: M : 1950 4 Dictat [...] Unchan ged 0.8 cm nodule in the packer operator automatic omedia l left lower lobe. Unchan ged 0.3 cm nodule in the medial left upper lobe ( image 33/66) . Heart/ Vascul ar Struct ures: Shin ry artery calcif icatio ns. Vascul ar calcif icatio ns of the aorta. Page 1 [facility] Y [facility] [place] [id number] Patien t Name: GOLDEN BARKSDALE Access ion #: [id number] Sex: M : 1950 4 Dictat [...] Unchan ged 0.8 cm nodule in the packer operator automatic omedia l left lower lobe. Unchan ged [...] at 2023 14:31: 14 PM Page 2 [email or web address] [facility] (Imaging) [address] [place], [address], 01/14/2024 17:20:57 01/26/[address] limit ed/fo llow- up [facility] [address] [place] [address] Patien t Name: GOLDEN BARKSDALE Access ion #: [id number] Sex: M : 1950 4 Dictat [...] exposu res [facility]iv [facility]: CT LOW DOSE CANCER SCREEN ING on DOS: 4, CT LOW DOSE CANCER SCREEN ING on DOS: 3, CT LOW DOSE CANCER SCREEN ING on DOS: 05/22/21 Findin gs: Lower neck: Normal thyroi d. Lungs: Modera te centri lobula r emphys jerri. Unchan ged 0.8 cm nodule in the packer operator automatic omedia l left lower lobe. Unchan ged 0.3 cm nodule in the medial left upper lobe ( image 33/66) . Heart/ Vascul ar Struct ures: Shin ry artery calcif icatio ns. Vascul ar calcif icatio ns of the aorta. Page 1 [facility] Y [facility] [address] [address] Patien t Name: GOLDEN BARKSDALE ion #: [id number] Sex: M : 1950 4 Dictat [...] Unchan ged 0.8 cm nodule in the packer operator automatic omedia l left lower lobe. Unchan ged 0.3 cm nodule in the medial left upper lobe. LUNG RADS Catego ry 2: Contin ue annual screen ing with LDCT Radiat ion optimi zation : All CT scans at this facili ty use at least one of these dose optimi zation techni ques: automa shnea exposu re contro l mA and/or kV adjust ment per patien t size (inclu aiden target ed exams where dose is matche d to clinic al indica tion) or iterat juan pablo recons tructi on. Electr onical ly Signed by: Kaz Bragg at 2023 14:31: 14 PM Page [address] (Imaging) [address] [place], [address], 01/26/2024 09:52:07 05/27/19 25 05/26/2024 , echoc ardio gram No observ ation record ed. [address] [facility] [address] , [place], [address], 05/27/2024 21:29:10 06/17/19 25 06/17/2024 imagi ng/di agnos tic resul t No observ ation record ed. [place] [id number] [facility] [address], [place], [address], 06/17/2024 17:38:05 06/17/19 25 06/17/2024 imagi ng/di agnos tic resul t No observ ation record ed. [facility] [address] [facility] [address], [place], [address], 06/17/2024 18:20:09 Result Notes None recorded. Problems Name Problem SNOMED Code Status Onset Date Resolution Date Notes Provider Name and Address Organization Details Recorded Time Sciatica 17017828 Active Not Available [facility] 3 14:21:28 Benign prostatic hyperplasia 771060574 Active 2021 Not Available [facility] 3 14:21:28 Disorder of prostate 82476539 Active 2021 Not Available [facility] 3 14:21:29 Polyp of colon 66965552 Active 2018 Not Available [facility] 3 14:21:29 Hemorrhoids 21594650 Active Not Available [facility] 3 14:21:29 Fatigue 86701207 Active 2021 Not Available [facility] 3 14:21:29 Pulmonary emphysema 57942919 Active Not Available [facility] 3 14:21:29 Abnormal weight loss 322631035 Active 2022 Michael Mathur MD [address], [facility] [address], [place], [address] , [facility] 3 12:21:57 Hypercholeste rolemia 57287764 Active 2022 Yudy Whitmore null, [facility] [employer] [facility] 3 12:26:55 Liver enzymes level above reference range 787257285 Active 2022 Radha Mcdonald CMA null, [facility] 3 12:56:42 Multiple nodules of lung 951868622 Active 2023 Michael Mathur MD [address], [facility] [address], [place], [address] , [facility] 4 12:01:57 COVID-19 180354065 Active 2023 Michael Mathur MD [address] [facility] [address], [place], [address] , [facility] [employer] Records [employer] Resources [facility] 4 12:23:48 Problem Notes None recorded. Procedures Surgical History Date Name Laterality Status Provider Name and Address Organization Details Recorded Time 4 Medicare Wellness CPT Code, subsequent completed Liyah Burris RN [facility] 07/04/2023 10:55:17 Imaging Results Imaging Date Name Status LastModified by Organization Details LastModified Time 06/12/2022 LDCT, chest, for lung cancer screening completed [id number] [facility] (Imaging) [address] [place], [address], 07/17/2022 14:26:36 09/25/2021 US, echocardiogram completed [id number] .[id number] [facility] [address], [place], [address], 07/17/2022 14:26:36 09/25/2021 pharmacologic nuclear stress test completed [id number].[id number] [facility] [address], [place], [address], 07/17/2022 14:26:36 11/01/2021 PFT, complete completed MIGRATION.[id number] 23 [id number] [facility] [address], [place], [address], 07/17/2022 14:26:36 12/06/2022 US, abdomen, limited completed [address] (Imaging) [address] [place], [address], 12/06/2022 13:56:43 07/04/2023 LDCT, chest, for lung cancer screening completed [address] (Imaging) [address] [place], [address], 07/04/2023 11:21:56 09/19/2023 PFT, complete completed [address], [address], 09/22/2023 12:28:29 09/19/2023 six minute walk test* completed [address], [address], 09/25/2023 17:07:03 01/14/2024 LDCT, chest, for lung cancer screening completed [address] (Imaging) [address] [place], [address], 01/14/2024 17:20:57 01/26/2024 CT limited/follow-up completed [email or web address] [place] [address] (Imaging) [address], [place], [address], 01/26/2024 09:52:07 05/26/2024 US, echocardiogram completed [email or web address] [facility] [address], [place], [address], 05/27/2024 21:29:10 06/17/2024 imaging/diagnostic result active [address], [place], [address], 06/17/2024 17:38:05 06/17/2024 imaging/diagnostic result active [address], [place], [address], 06/17/2024 18:20:09 Procedure Notes None recorded. Medical Equipment None [...] completed Not Available Not Available Not Available [place] 7.5 mg-325 mg tablet Take 1 tablet [...] % 93 % 113 /min 97 [degF] 43399.7 1 g 118 mm[Hg] 70 mm[Hg] Not Available [facility] 3 14:18:40 Date Recorded Body mass index (BMI) Body height Oxygen saturation Oxygen saturation in Arterial blood by Pulse oximetry Heart rate Body temperature Body weight Systolic blood pressure Diastolic blood pressure Provider Name and Address Organization Details Last Updated DateTime 2 17 kg/m2 175.26 cm 95 % 95 % 79 /min 96.9 [degF] 60219.1 2 g 122 mm[Hg] 84 mm[Hg] Not Available [facility] 3 14:18:40 Date Recorded Body height Body mass index (BMI) Body weight Heart rate Body temperature Oxygen saturation Oxygen saturation in Arterial blood by Pulse oximetry Systolic blood pressure Diastolic blood pressure Provider Name and Address Organization Details Last Updated DateTime 3 175.26 cm 16.8 kg/m2 30424.5 3 g 85 /min 97 [degF] 92 % 92 % 120 mm[Hg] 64 mm[Hg] Maura Noguera cocone [facility] [employer] 3 12:04:21 Date Recorded Body height Body mass index (BMI) Body weight Heart rate Body temperature Oxygen saturation Oxygen saturation in Arterial blood by Pulse oximetry Systolic blood pressure Diastolic blood pressure Provider Name and Address Organization Details Last Updated DateTime 4 175.26 cm 17.6 kg/m2 10466.4 9 g 80 /min 97.4 [degF] 90 % 90 % 136 mm[Hg] 88 mm[Hg] RODGER Burgess cocone [facility] [employer] 4 10:54:20 Date Recorded Body height Body mass index (BMI) Body weight Heart rate Body temperature Oxygen saturation Oxygen saturation in Arterial blood by Pulse oximetry Systolic blood pressure Diastolic blood pressure Provider Name and Address Organization Details Last Updated DateTime 4 175.26 cm 17.4 kg/m2 94235.9 g 70 /min 97.4 [degF] 90 % 90 % 132 mm[Hg] 80 mm[Hg] RODGER Burgess [place] [facility] 4 11:32:31 Social History Question Answer Notes LastModified by Organizat ion Details LastModified Time Tobacco Smoking Status Current Every Day Smoker Not Available [facility] 07/17/2022 14:15:59 Do You Have An Advance Directive? No [id number] Information not available 07/17/2022 What Is Your Level Of Alcohol Consumption? None [email or web address] Information not available 07/04/2023 Are You Blind Or Do You Have Difficulty Seeing? No MIGRATION.67187 [id number] Information not available 07/17/2022 Are You Deaf Or Do You Have Serious Difficulty Hearing? No MIGRATION.81455 46523 Information not available 07/17/2022 What Type Of Diet Are You Following? REGULAR MIGRATION.15502 81929 Information not available 07/17/2022 Do You Or Have You Ever Used E-cigarettes Or Vape? Never Used Electronic Cigarettes MIGRATION.16691 30825 Information not available 07/17/2022 Have There Been Any Changes To Your Family Or Social Situation? No MIGRATION.26911 15228 Information not available 07/17/2022 What Is The Fluoride Status Of Your Home? Unknown MIGRATION.28016 93770 Information not available 07/17/2022 Are There Any Guns Present In Your Home? No MIGRATION.53595 [id number] Information not available 07/17/2022 Do You Use Insect Repellent Routinely? Yes MIGRATION.51714 [id number] Information not available 07/17/2022 [facility] MIG[facility].18411 [address] Information not available 07/17/2022 Guns Present In The Home? No [email or web address] Information not available 07/04/2023 Are You Able To Care For Yourself? Yes [email or web address] Information not available 07/04/2023 Are You Blind Or Do Yo Have Difficulty Seeing? No [email or web address] Information not available 07/04/2023 Are You Deaf Or Do You Have Serious Difficulty Hearing? No [email or web address] Information not available 07/04/2023 Live Alone Of With Others? With Others [email or web address] Information not available 07/04/2023 What Was The Date Of Your Most Recent Tobacco Screening? 07/04/2023 [email or web address] Information not available 07/04/2023 Do You Have Any Pets? Yes [email or web address] Information not available 07/04/2023 What Is Your Relationship Status? MIGRATION.74743 [id number] Information not available 07/17/2022 Do You Use Your Seat Belt Or Car Seat Routinely? Yes [email or web address] Information not available 07/04/2023 Do You Have Smoke And Carbon Monoxide Detectors In Your Home? Yes MIGRATION.48969 86604 Information not available 07/17/2022 At What Age Did You Start Smoking Tobacco? 14 MIGRATION.09615 96647 Information not available 07/17/2022 Are You Passively Exposed To Smoke? Yes MIGRATION.85321 97685 Information not available 07/17/2022 Are There Any Smokers In Your House? Yes MIGRATION.76014 36947 Information not available 07/17/2022 How Much Tobacco Do You Smoke? 1 PPD MIGRATION.31145 45065 Information not available 07/17/2022 Do You Use Sunscreen Routinely? No MIGRATION.45061 50176 Information not available 07/17/2022 How Many Years Have You Smoked Tobacco? 50 MIGRATION.64390 66173 Information not available 07/17/2022 Have You Recently Traveled Abroad? No MIGRATION.93454 20316 Information not available 07/17/2022 Do You Have Any Dietary Restrictions? No MIGRATION.10445 83210 Information not available 07/17/2022 Sex: Unknown Functional Status Question Answer Note LastModified by Organizat ion Details LastModified Time Do you have difficulty walking or climbing stairs? No [id number].[id number] 026 Information not available 07/17/2022 Do you have transportation difficulties? No [id number] Information not available 07/17/2022 Are you able to walk? YESWOREST [id number] Information not available 07/17/2022 Do you have difficulty doing errands alone? No [id number] Information not available 07/17/2022 Are you able to care for yourself? Yes [id number] Information not available 07/17/2022 Do you have difficulty dressing or bathing? No [id number] Information not available 07/17/2022 What is your exercise level? Occasional [id number] Information not available 07/17/2022 Mental Status Question Answer Note LastModified by Organizat ion Details LastModified Time Do you have difficulty concentrating, remembering or making decisions? No [id number] Information not available 07/17/2022 Family History [...] brother has Parkinsonism Medical History Condition Response NERVE DISEASE N BLINDNESS N RHEUMATIC FEVER N KIDNEY STONES N BLADDER PROBLEMS N MRSA N OTHER # 1 N POLIO N LUNG DISEASE/DISORDER N HISTORY OF DRUG ABUSE N COPD N RADIATION / CHEMOTHERAPY N Other # 2 N BLOOD DISEASES N EAR OR HEARING PROBLEMS N MUMPS N SHINGLES N BOWEL PROBLEMS N DEPRESSION (INCLUDING POST ) N STROKE/TIA N ULCERS N BENIGN PROSTATIC HYPERPLASIA N MEASLES N HYPOTENSION N MYOCARDIAL INFARCTION N OBESITY N GERD/NAUSEA N ANEURYSM N URINARY/BLADDER/KIDNEY PROBLEMS N CORONARY ARTERY DISEASE (CAD) N ADDICTION CONCERNS N ENDOMETRIOSIS N Impotence N USE OF BLOOD THINNERS N SKIN [...] GLAUCOMA N FOOT PROBLEM N DIVERTICULITIS N CHICKENPOX N SLEEP APNEA N INFECTIOUS DISEASE N HEART ARRHYTHMIA N PROSTATE N INSOMNIA N HIGH CHOLESTEROL / HYPERLIPIDEMIA N HYPERTHYROIDISM N EYE PROBLEMS N EDEMA N CHRONIC PAIN SYNDROME N HYPOTHYROIDISM N CAROTID BLOCKAGE N CONSTIPATION N BACK / NECK PROBLEMS N HAVE YOU BEEN HOSPITALIZED OR SEEN IN [facility] IN THE PAST YEAR ? N ATHEROSCLEROSIS N BREAST PROBLEMS N DIALYSIS N ECZEMA N OSTEOPOROSIS N ARTHRITIS N NO SIGNIFICANT PAST MEDICAL HISTORY N APPENDICITIS N DIABETES, TYPE N BAD TEETH N ENT N HEARTBURN / REFLUX N AUTISM SPECTRUM DISORDER (ASD) N HEPATITIS / LIVER DISEASE N GOUT N SLEEP DISORDER N ALZHEIMER'S DISEASE N Brain Problems N HERPES N DEMENTIA N HEADACHES/MIGRAINES N SEIZURES/EPILEPSY N VASCULAR DISEASE N PACEMAKER N Blood Disorder N DIZZINESS N HEART DISEASE/HEART PROBLEMS N KIDNEY DISEASE N MULTIPLE SCLEROSIS N CARDIAC ARRHYTHMIA N CANCER: SPECIFY N ATRIAL FIBRILLATION N Gall Stones N PULMONARY EMBOLISM N AUTOIMMUNE DISEASE N Past Encounters Encounter ID Performer Location Encounter Start Date Encounter Closed Date Diagnosis/Indication Diagnosis SNOMED-CT Code Diagnosis ICD10 Code Diagnosis Note [id number] [facility] [place] [address] [place] [address] [place] [address] 10/24/2020 00:00:00 10/24/2020 14:09:17 [id number] [facility] [place] [address] [place] [address] [place] [address] 04/24/2021 00:00:00 04/24/2021 11:47:21 [id number] [facility] [place] [address] [place] [address] [place] [address] 10/23/2021 00:00:00 10/23/2021 11:29:57 [id number] [facility] Internal [place] [address] [place] [address] [place] [address] 04/23/2022 00:00:00 04/23/2022 12:07:32 [id number] Michael Mathur MD [facility] Internal [facility] [place] [address] [place] [address] [place] [address] 11/12/2022 11:50:08 11/12/2022 12:27:58 Benign prostatic hyperplasia 658412576 N40.0 Polyp of colon 80504557 K63.5 Pulmonary emphysema 8743 3001 J43.9 Disorder of prostate 302 88991 N42.9 Abnormal weight loss 267 652901 R63.4 [id number] Michael Mathur MD [facility] Internal [facility] [place] [address] [place] [address] [place] [address] 07/04/2023 10:33:26 07/04/2023 11:38:10 Adult health examination 173195798 Z00.00 Screening for disorder 148194459 Z13.9 Hypercholesterolemia 136 82912 E78.00 Pulmonary emphysema 8743 3001 J43.9 Polyp of colon 77209481 K63.5 [id number] Michael Mathur MD [facility] [place] [address] [facility] [place] [address] 01/01/2024 11:20:39 01/01/2024 12:10:25 Hypercholesterolemia 27967661 E78.00 Pulmonary emphysema 8743 3001 J43.9 Benign pro static hyperplasia 614085666 N40.0 Multiple n odules of lung 267861041 R91.8 Health Concerns Section Related Observation LastModified by Organization Detai ls LastModified Time None Recorded Concern Status LastModified by Organization Details LastModified Time None Recorded Advance Directives Directive N: Payers Encounter Date Sequence Insurance Name Policy Number Policy Mueller Covered Member ID Mueller Member ID Guarantor Name 11/12/2022 1 [facility] (MEDICARE REPLACEMENT/A DVANTAGE - PPO) [id number] Golden Barksdale [id number] Golden Barksdale 07/04/2023 1 [facility] (MEDICARE REPLACEMENT/A DVANTAGE - PPO) [id number] Golden Merazrea [id number] Golden Merazrea 01/01/2024 1 [facility] (MEDICARE REPLACEMENT/A DVANTAGE - PPO) [id number] Golden Merazrea [id number] Golden Claya Notes Date Note Type Note Provider Name and Address Organization Details Recorded Time 11/12/2022 text/html Patient Name: Daysi jones Adeliadaate Of Service: Friday ( 11.12.2022 ): 1950 [...] Symptoms: none Medication Reconciliation: from medication list. Fbaszkqamiz16/25/2023: Low-dose CT scan the chest from 06/11/2019 [...] CVAOne brother has Parkinsonism Michael Mathur MD [address] [place] [address], [place] [address], [place], [address], [place] [facility] 11/12/2022 12:22:52 07/04/2023 text/html Patient [...] brother has Parkinsonism Michael Mathur MD [address] [facility], [address], [place], [address], [place] [facility] 07/04/2023 11:29:25 01/01/2024 text/html Patient Name: Daysi MerazreaDate Of Service: December ( 01.01.2024 ): 1950 [...] brother has Parkinsonism Michael Mathur MD [address] [facility], [facility] [address], [place], [address], [facility] 01/01/2024 12:07:01
[2024-06-17 17:41] LABS: Amphetamine Screen Urine Negative (Negative); Barbiturate Screen Urine Negative (Negative); Benzodiazepines Screen Urine Negative (Negative); Cannabinoid Screen Urine Negative (Negative); Cocaine Screen Urine Negative (Negative); Methadone Screen Urine Negative (Negative); Opiate Screen Urine Negative (Negative); Phencyclidine Screen Urine Negative (Negative)
[2024-06-17 17:50] LABS: Base Excess ABG 4.8 mEq/l (+/-2.0); Fractional Inspired Oxygen 21 %; HCO3 ABG 29.7 mEq/l (22.0-26.0); Oxygen Content ABG 17.3 %vol (16.0-22.0); PCO2 ABG 44.7 mmHg (35.0-45.0); PO2 ABG 50.2 mmHg (80.0-100.0); PO2 FiO2 Ratio Arterial Blood 2.39 %; Total Hemoglobin 14.4 g/dL (12.0-18.0)
[2024-06-17 17:51] LABS: Oxygen Saturation ABG 86.7 % (95.0-100.0)
[2024-06-17 17:52] LABS: Device ROOM AIR; Modified Allen's Test Pass; Oxyhemoglobin 85.5 % THb (90.0-100.0); Site Drawn LEFT RADIAL
[2024-06-17] MEDS: THIAMINE 500 MG/NS 100 ML 500 MG/100 ML BAG 200 MG IVPB (18:21)
[2024-06-17 18:28] LABS: Acetaminophen < 10 ug/mL (10-30); Salicylate < 1.0 mg/dL (2-20)
[2024-06-17 19:02] LABS: Creatine Kinase 65 U/L (55-170)
[2024-06-17 19:11] LABS: NT Pro B Type Natriuretic Pept 517 pg/mL (19.9-100)
[2024-06-17 19:14] LABS: Lactic Acid Reflex 1.1 mmol/L (0.7-2.0); Lipase 59 U/L (23-300); Magnesium 1.9 mg/dL (1.6-2.3); Phosphorus 3.6 mg/dL (2.5-4.5)
[2024-06-17 19:31] LABS: Troponin I 0.035 ng/mL (0.000-0.034)
--- NOTE | 2024-06-17 19:37 | ED_ITS ---
HPI - General Adult General Chief complaint: Neuro Symptoms/Deficit Stated complaint: neuro Time Seen by Provider: 06/17/24 16:21 History of Present Illness HPI narrative: This is a Left handed 73-year-old male presenting with speech difficulties. Patient was last seen normal at 3:00 pm. Patient had been on a porch with his drinking a beer when all the sudden he was unable to speak correctly. It seemed like he could not find the words. No facial droop or any weakness to any extremity. No history of strokes. Patient is daily drinker in his drinks 5-8 beers a day for many years. is not remember any events of alcohol withdrawal. Related Data Allergies Allergy/AdvReac Type Severity Reaction Status Date / Time No Known Allergies Allergy Verified 06/10/24 08:52 [facility] Past Medical History Medical History Adenomatous colon polyp Benign prostatic hyperplasia Abnormal weight loss Pulmonary emphysema 04/23/2022 Hypercholesterolemia Polyp of colon Family History Family History Mother Hypertension Diabetes mellitus Father COPD (chronic obstructive pulmonary disease) Sibling Cerebrovascular accident Parkinson disease Social History Social History Smoking packs per day: 1 Smoking cigarettes per day: 20.0 Years smoked: 60 Smoking pack-years: 60.00 Smoking status: Current every day smoker Tobacco type: cigarettes Second hand tobacco smoke exposure: Yes Alcohol intake: current Drinks per week: 30 Alcohol use details: beer Substance use: unknown Substance use type: does not use Living arrangements: with family Spiritual care concerns: No Exam 2 Narrative: APPEARANCE: No apparent distress. Head: atraumatic. EYES: EOMI, NOSE: Atraumatic NECK: Trachea midline RESPIRATORY: No increased rate of breathing CARDIOVASCULAR: RRR, ABDOMINAL: Non-distended MUSCULOSKELETAl: No obvious deformities NEURO: Alert. Moving 4/4 extremities SKIN:: Warm, dry. Normal color PSYCHIATRIC: Normal affect NIH Stroke Scale/Score (NIHSS) from [email or web address] on 06/17/2024 All calculations should be rechecked by clinician prior to use RESULT SUMMARY: 1 points NIH Stroke Scale INPUTS: 1A: Level of consciousness ?> 0 = Alert; keenly responsive 1B: Ask month and age ?> 0 = Both questi ons right 1C: 'Blink eyes' & 'squeeze hands' ?> 0 = Performs both tasks 2: Horizontal extraocular movements ?> 0 = Normal 3: Visual acosta ?> 0 = No visual loss 4: Facial palsy ?> 0 = Normal symmetry 5A: Left arm motor drift ?> 0 = No drift for 10 seconds 5B: Right arm motor drift ?> 0 = No drif t for 10 seconds 6A: Left leg motor drift ?> 0 = No drift for 5 seconds 6B: Right leg motor drift ?> 0 = No drif t for 5 seconds 7: Limb Ataxia ?> 0 = No ataxia 8: Sensation ?> 0 = Normal; no sensory l oss 9: Language/aphasia ?> 1 = Mild-moderate aphasia: some obvious changes, without significant limitation 10: Dysarthria ?> 0 = Normal 11: Extinction/inattention ?> 0 = No abn ormality Course Vital Signs Vital signs: Vital Signs Pulse Rate 77 06/17/24 16:36 Respiratory Rate 19 06/17/24 16:36 Pulse Rate 80 06/17/24 17:46 Respiratory Rate 22 H 06/17/24 17:46 Blood Pressure 119/95 H 06/17/24 17:46 Pulse Oximetry 97 06/17/24 20:11 Medical Decision Making MDM Narrative Medical decision making narrative: -Course: 73-year-old male presenting with word-finding difficulties. Last known normal 3:00 p.m.. Original NIH of 1. Patient is not a tPA candidate due to low NIH. Symptoms resolved while the patient was in the ED and he is now asymptomatic. CTA showed significant stenosis of the right internal carotid artery. As the patient is left handed this may be causative of his speech finding difficulty. The [facility] transfer line contacted and I spoke with Dr. Newman (neurology.) The patient was placed on the [facility] wait list @ [facility] under Dr. Montemayor. Until then the patient should undergo a traditional stroke workup including MRI, telemetry monitoring and echocardiogram with bubble study. The patient was admitted for further workup while awaiting transfer. Patient given thiamine for etoh abuse. given ASA for tia. -DDX includes but is not limited to: CVA, Wernicke encephalopathy, sepsis,Carotid stenosis -Co-morbidities complicating care: Daily alcohol use, COPD -Independent interpretation of studies: Labs imaging reviewed. -Discussion of Management/Consultants: [facility] Transfer line - Dr. Newman - Neuro, [facility] - Dr. Montemayor, Dr. Soto -Interventions:Thiamine 500mg, asa -Shared decision making / Disposition:Admitted Vital Signs Vital Signs: Vital Signs Pulse Rate 77 06/17/24 16:36 Respiratory Rate 19 06/17/24 16:36 Pulse Rate 80 06/17/24 17:46 Respiratory Rate 22 H 06/17/24 17:46 Blood Pressure 119/95 H 06/17/24 17:46 Pulse Oximetry 97 06/17/24 20:11 Lab Data 06/17/24 16:32 06/17/24 16:32 Labs: Lab Results 06/17/24 06/17/24 06/17/24 Range/Units 16:32 17:19 18:59 WBC 8.7 (4.5-10.0) K/mm3 RBC 4.33 L (4.6-6.20) M/mm3 Hgb 14.7 (14.0-18.0) g/dL Hct 44.0 (42.0-52.0) % MCV 101.6 H (80-100) fl MCH 33.9 (26-34) pg MCHC 33.4 (32-36) g/dl RDW 12.3 (11.5-14.5) % Plt Count 224 (150-375) k/mm3 MPV 10.5 H (7.4-10.4) fl Immature Gran % (Auto) 0.2 (0-0.5) % Neut % (Auto) 68.0 (45.5-73.1) % Lymph % (Auto) 20.0 (18.3-44.2) % Claiborne % (Auto) 10.5 H (2.6-8.5) % Eos % (Auto) 0.8 (0-4.4) % Baso % (Auto) 0.5 (0.2-1.2) % Lymph # (Auto) 1.75 (0.9-3.2) K/mm3 Claiborne # (Auto) 0.9 H (0.1-0.6) K/mm3 Eos # (Auto) 0.1 (0-0.3) K/mm3 Baso # (Auto) 0.0 (0.0-0.1) K/mm3 Abs Immat Gran (auto) 0.02 (0.00-0.031) K/mm3 Absolute Neuts (auto) 5.9 (1.3-6.7) K/mm3 Absolute Nucleated RBC 0.000 (0.0-0.012) K/mm3 Nucleated RBC % 0.0 (0.0-0.2) % PT 13.6 (11.1-14.7) Seconds INR 1.0 APTT 31.5 (22.3-36.8) Seconds Sodium 137 (137-145) mmol/L Potassium 4.1 (3.4-5.0) mmol/L Chloride 98 (98-107) mmol/L Carbon Dioxide 26 (22-30) mmol/L Anion Gap 13 H (4-12) mmol/L BUN 13 (9-20) mg/dL Creatinine 0.64 L (0.7-1.3) mg/dL Estim Creat Clear Calc Not Reportable Estimated GFR > 60 (59 - ) Glucose 90 (65-110) mg/dL Lactic Acid 1.1 (0.7-2.0) mmol/L Calcium 9.8 (8.4-10.2) mg/dL Phosphorus 3.6 (2.5-4.5) mg/dL Magnesium 1.9 (1.6-2.3) mg/dL Total Bilirubin 0.7 (0.2-1.3) mg/dL AST 70 H (17-59) U/L ALT 64 H (6-50) U/L Alkaline Phosphatase 106 (38-126) U/L Total Creatine Kinase 65 (55-170) U/L Troponin I 0.040 H* 0.035 H* (0.000-0.034) ng/mL NT-Pro-B Natriuret Pep 517 H (19.9-100) pg/mL Total Protein 7.0 (6.3-8.2) g/dL Albumin 4.4 (3.5-5.1) g/dL Lipase 59 (23-300) U/L TSH (Reflex) 2.780 (0.465-4.68) uIU/mL Salicylates < 1.0 L (2-20) mg/dL Urine Opiates Screen Negative (Negative) Urine Methadone Screen Negative (Negative) Acetaminophen < 10 L (10-30) ug/mL Ur Barbiturates Screen Negative (Negative) Ur Phencyclidine Scrn Negative (Negative) Ur Amphetamine Screen Negative (Negative) U Benzodiazepines Scrn Negative (Negative) Urine Cocaine Screen Negative (Negative) U Cannabinoids Screen Negative (Negative) Ethyl Alcohol 13 (<10) mg/dL Influenza A (RT-PCR) Negative (Negative) Influenza B (RT-PCR) Negative (Negative) RSV (RT-PCR) Negative (Negative) SARS-CoV-2 RNA (RT-PCR) Negative (Negative) ABG Data ABG results: 06/17/24 17:44 Puncture Site Left radial ABG pH 7.440 ABG pCO2 44.7 ABG pO2 50.2 L ABG PO2/FiO2 Ratio 2.39 ABG HCO3 29.7 H ABG O2 Saturation 86.7 L* ABG O2 Content 17.3 ABG Base Excess 4.8 A-a Gradient 46.0 Oxyhemoglobin 85.5 L* Total Hemoglobin 14.4 O2 Delivery Device Room air O2 Liters/Min Not Reportable FiO2 21 Critical Care Time Critical Care Time Critical Care Time: Yes Total Critical Care Time: 35 Discharge Plan Discharge Clinical Impression: Brain TIA, Carotid artery stenosis Patient Disposition: Still a Patient Condition: Stable Patient Language: Slovenian Prescriptions: No Action Trelegy Ellipta 100-62.5-25 mcg blister with device See Rx Instructions .ROUTE .COMPLEX Qty: 60 10RF Dose Instruction: INHALE 1 PUFF BY MOUTH EVERY 24 HOURS FOR COPD FOR ONE MONTH. TAKE DOSE AT THE SAME TIME DAILY, RINSE AND SPIT Rx Instructions: INHALE 1 PUFF BY MOUTH EVERY 24 HOURS FOR COPD FOR ONE MONTH. TAKE DOSE AT THE SAME TIME DAILY, RINSE AND SPIT Follow-up/Referrals: Kevan,Michael Abdul MD [Primary Care Provider] -
[2024-06-17 19:41] LABS: Influenza A QL RT-PCR Negative (Negative); Influenza B QL RT-PCR Negative (Negative); RSV RNA, RT-PCR Negative (Negative); SARS-CoV-2 RNA PCR Negative (Negative)
[2024-06-17] MEDS: ASPIRIN 81 MG CHEWABLE TABLET 324 MG PO (21:06)
--- NOTE | 2024-06-17 21:41 | PC.NURSE ---
spoke with Annie at [facility] transfer center, [facility] is at capacity they will contact us when a bed becomes available.
[2024-06-17 23:54] LABS: Troponin I 0.028 ng/mL (0.000-0.034)
[2024-06-22 14:43] LABS: Glucose Point of Care 92 mg/dl (65-105)
== END 2024-06-17 23:16 | disposition short-term general hospital (02) ==
PROVIDERS: Emergency Provider Emergency Medicine; PCP Internal Medicine
DX: G45.9 Transient cerebral ischemic attack, unspecified (principal); I65.23 Occlusion and stenosis of bilateral carotid arteries; Z20.822 Contact with and (suspected) exposure to COVID-19; E78.00 Pure hypercholesterolemia, unspecified; J43.9 Emphysema, unspecified; F10.90 Alcohol use, unspecified, uncomplicated; N40.0 Benign prostatic hyperplasia without lower urinary tract symptoms; F17.210 Nicotine dependence, cigarettes, uncomplicated; Z86.0101 Personal history of adenomatous and serrated colon polyps; R94.31 Abnormal electrocardiogram [ECG] [EKG]; Z79.51 Long term (current) use of inhaled steroids; Y90.0 Blood alcohol level of less than 20 mg/100 ml
CPT/HCPCS: 36415; 36600; 70450; 70496; 70498; 71045; 80053; 80143; 80179; 80307; 82077; 82550; 82805; 82948; 83605; 83690; 83735; 83880; 84100; 84443; 84484; 85018; 85025; 85610; 85730; 87040; 87637; 93005; 96365; 99285; A9270; J3411; Q9967

== ENCOUNTER 2025-01-27 09:51 | Outpatient (CLI) | payer MEDICARE, SELFPAY ==
--- NOTE | ~2025-01-27 | CT_ITS ---
EXAMINATION:CT lung screening DATE: 01/27/2025 10:04 INDICATION: Personal history of nicotine dependence. TECHNIQUE: Computed tomography (CT) of the chest was performed without intravenous contrast. Automated exposure control and iterative reconstruction technique were employed. The dose-length product (DLP) was 50.98 mGy-cm. COMPARISON: None. FINDINGS: There is severe emphysema. There is mild scarring at the lung apices. There is a 6 mm nodule in right upper lobe. There is a 7 mm nodule in left lower lobe. There is mild elevation of left hemidiaphragm. There is mild atelectasis bilaterally. There is a 7 mm nodule in right upper lobe. There is a 7 mm nodule in left upper lobe. No pleural effusion. The heart size is normal. There are coronary artery calcifications. No pericardial effusion. There is bilateral gynecomastia. There is a 2.5 cm cyst in left kidney. The liver is hyperdense, which may be seen with amiodarone exposure. There is mild thoracic spondylosis. IMPRESSION: 1. Lung-RADS category 3: Probably benign. Further evaluation is recommended with noncontrast low-dose chest CT in 6 months. Reviewed, dictated and finalized at location E. IMPRESSION: 1. Lung-RADS category 3: Probably benign. Further evaluation is recommended wit h noncontrast low-dose chest CT in 6 months.
== END 2025-01-27 09:52 | disposition home or self-care (01) ==
LOC: MICIMG 09:52
PROVIDERS: PCP Internal Medicine; Visit Provider Internal Medicine Critical Care Medicine
DX: Z12.2 Encounter for screening for malignant neoplasm of respiratory organs (principal); Z87.891 Personal history of nicotine dependence; R91.8 Other nonspecific abnormal finding of lung field
CPT/HCPCS: 71271